=== PATIENT | male | born 1970 | race Caucasian/White ===

== ENCOUNTER → 2023-10-27 09:46 | Outpatient (REF) | payer BC, SELFPAY ==
[2023-10-27 11:44] LABS: ALT (SGPT) 37 U/L (0-50); AST (SGOT) 38 U/L (17-59); Albumin 4.5 g/dl (3.5-5.0); Alkaline Phosphatase 68 U/L (38-126); Direct Bilirubin 0.4 mg/dl (0.0-0.4); Total Bilirubin 0.7 mg/dl (0.2-1.3); Total Protein 7.5 g/dl (6.3-8.2)
[2023-10-27 12:19] LABS: Hepatitis B Surface Antigen Negative (Negative)
[2023-10-27 12:36] LABS: Hepatitis B Core Ab, Total Negative (Negative); Hepatitis B Surface Antibody Negative; Hepatitis C Antibody Negative (Negative)
[2023-10-27 18:10] LABS: Hepatitis A Antibody, Total Negative (Negative)
== END ==
LOC: REG 09:46
PROVIDERS: ATTENDING PHYSICIAN Internal Medicine Gastroenterology
DX: R74.8 Abnormal levels of other serum enzymes (principal)
CPT/HCPCS: 36415; 80076; 86704; 86706; 86708; 86803; 87340

== ENCOUNTER → 2023-11-04 07:37 | Outpatient (REF) | payer BC, SELFPAY | LOC: HWRAD 07:37 | PROVIDERS: ATTENDING PHYSICIAN Internal Medicine Gastroenterology; FAMILY PHYSICIAN Family Medicine | DX: R74.8 Abnormal levels of other serum enzymes (principal) | CPT/HCPCS: 76700 ==

== ENCOUNTER → 2023-11-06 06:20 | Day surgery (SDC) | payer BC, SELFPAY ==
[2023-11-06 08:12] LABS: Glucose - Point of Care 202 mg/dl (70-99)
== END ==
LOC: GI 06:20
PROVIDERS: ATTENDING PHYSICIAN Internal Medicine Gastroenterology
DX: Z12.11 Encounter for screening for malignant neoplasm of colon (principal); D12.4 Benign neoplasm of descending colon; K63.5 Polyp of colon; K64.8 Other hemorrhoids; K29.70 Gastritis, unspecified, without bleeding; K20.0 Eosinophilic esophagitis; R10.10 Upper abdominal pain, unspecified; R19.5 Other fecal abnormalities
CPT/HCPCS: 45385; 43239; 88305; 88312; 82962; 88342

== ENCOUNTER → 2024-05-27 14:52 | Outpatient (REF) | payer BC, SELFPAY | LOC: HWRCS 14:52 | PROVIDERS: ATTENDING PHYSICIAN Student in an Organized Health Care Education/Training Program; FAMILY PHYSICIAN Family Medicine | DX: R07.89 Other chest pain (principal) | CPT/HCPCS: 93306 ==

== ENCOUNTER 2024-06-24 06:21 | Day surgery (SDC) | payer BC, SELFPAY ==
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
[2024-06-20 09:06] VITALS: BMI 33.4
[2024-06-20 10:01] LABS: % Basophils 0.8 % (0-2); % Eosinophils 6.2 % (0-6); % Immature Granulocytes 0.2 % (0-0.5); % Lymphocytes 29.9 % (20.5-51.1); % Neutrophils 56.9 % (42.2-75.2); Absolute Basophils 0.1 10^3/uL (0-0.2); Absolute Eosinophils 0.6 10^3/uL (0-0.7); Absolute Lymphocytes 2.9 10^3/uL (1.2-3.4); Absolute Monocytes 0.6 10^3/uL (0.1-0.6); Absolute Neutrophils 5.4 10^3/uL (1.4-6.5); Hemoglobin 15.3 g/dL (13.0-18.0); Mean Corpuscular Hgb 31.2 pg (27.0-31.0); Mean Corpuscular Volume 91.8 fL (80.0-94.0); Mean Platelet Volume 10.3 fL (7.4-10.4); Nucleated Red Blood Cells % 0 % (-); Platelet Count 359 10^3/uL (130-400); White Blood Cell Count 9.5 10^3/uL (4.8-10.8)
[2024-06-20 10:57] LABS: ALT (SGPT) 34 U/L (0-50); AST (SGOT) 31 U/L (17-59); Albumin 4.6 g/dl (3.5-5.0); Alkaline Phosphatase 54 U/L (38-126); Blood Urea Nitrogen 23 mg/dl (9-20); Calcium 9.9 mg/dl (8.4-10.2); Carbon Dioxide 20 mmol/L (22-30); Chloride 105 mmol/L (98-107); Estimated Creatinine Clearance 110 ml/min; Glucose 180 mg/dl (70-99); Potassium 4.6 mmol/L (3.5-5.1); Sodium 138 mmol/L (135-145); Total Bilirubin 1.1 mg/dl (0.2-1.3); Total Protein 7.2 g/dl (6.3-8.2); eGFR > 60.00
[2024-06-24] VITALS (13 sets, daily range): BP systolic 107–135; BP diastolic 68–88; BMI 33.4
[2024-06-24] MEDS: NSS 500 IV ×2 (07:08→09:47)
[2024-06-24 07:10] LABS: Glucose - Point of Care 285 mg/dl (70-99)
[2024-06-24 10:11] LABS: Glucose - Point of Care 181 mg/dl (70-99)
[2024-06-24] MEDS: TYLENOL 650 MG PO (10:17)
--- NOTE | 2024-06-24 10:51 | ITS.CL.PN ---
Rn Lpn Lvn - Procedure Note
Procedure
Procedure Note:
CARDIAC CATHETERIZATION REPORT
Date of Procedure: 06/24/2024
Referring: Dr. Rad Cabrera MD, PhD
Indication: chest pain, cardiomyopathy
PROCEDURE(S)
1. left heart catheterization
2. coronary angiography
ACCESS: 6F right radial artery (closure: radial band)
CATHETERS
1. 6F JR4
2. 6F JL3.5
HEMODYNAMIC DATA
LV 108/19 (EDP 26) mmHg
AO 117/81 (mean 97) mmHg
CORONARY ANGIOGRAPHY
Dominance: right
LM: large and normal
LAD: large patulous vessel giving rise to a large septal cascade, moderate caliber D1, and small D2. There is a total occlusion just after D1 with the distal LAD filled by left to left and right to left collaterals. The TRACK LAYER HEAD is long (~30 cm),
straight, noncalcified, with a well-defined proximal beak, and no branches at the distal reconstitution.
LCx: large vessel that gives rise to a small OM1 and large OM 2. There is diffuse mild nonobstructive disease.
RCA: large vessel giving rise to a large RPDA, moderate caliber RPL1, large RPL2, and small RPL3. There is a 95% stenosis in the mid RCA, moderate disease in the proximal aspect of the RPDA, severe disease in the RPAV prior to the large RPL2 branch,
and diffuse mild disease in the RPL2 branch.
RADIATION: dose 519 mGy; DAP 30.9 Gy*cm2; fluoroscopy time 3.8 min
CONCLUSIONS
1. Two-vessel coronary artery disease in a right dominant system as described.
2. Elevated LV filling pressure and no aortic stenosis on hemodynamic pullback
RECOMMENDATIONS
1. expectant management after cardiac catheterization via right radial approach
2. referral for consideration of coronary artery bypass grafting given patient's young age, diabetes, and cardiomyopathy with reduced ejection fraction. Percutaneous revascularization of the RCA would be complicated but technically feasible due to
significant distal branch disease requiring multiple stents. Percutaneous revascularization of the LAD would be complicated but technically feasible due to presence of a long mid vessel TRACK LAYER HEAD.
3. aggressive secondary prevention of coronary artery disease with addition of PCSK9 inhibitor for goal LDL less than 55. Aggressive management of risk factors including diabetes, hypertension, obesity.
Copy to: Dr. Noel Armenta MD (PCP)
Signed: Rad Cabrera MD, PhD
== END 2024-06-24 12:05 | disposition home or self-care (01) ==
LOC: CATH 06:21
PROVIDERS: ATTENDING PHYSICIAN Student in an Organized Health Care Education/Training Program; CONSULT PHYSICIAN Thoracic Surgery (Cardiothoracic Vascular Surgery); FAMILY PHYSICIAN Family Medicine
DX: I25.10 Atherosclerotic heart disease of native coronary artery without angina pectoris (principal); R42 Dizziness and giddiness; R07.89 Other chest pain; I10 Essential (primary) hypertension; I45.10 Unspecified right bundle-branch block; R93.1 Abnormal findings on diagnostic imaging of heart and coronary circulation; J45.909 Unspecified asthma, uncomplicated; I34.0 Nonrheumatic mitral (valve) insufficiency; E11.40 Type 2 diabetes mellitus with diabetic neuropathy, unspecified; I42.9 Cardiomyopathy, unspecified; E78.01 Familial hypercholesterolemia; K21.9 Gastro-esophageal reflux disease without esophagitis; Z86.0100 Personal history of colon polyps, unspecified; Z87.442 Personal history of urinary calculi; K76.0 Fatty (change of) liver, not elsewhere classified; G43.909 Migraine, unspecified, not intractable, without status migrainosus; Z87.828 Personal history of other (healed) physical injury and trauma; M19.90 Unspecified osteoarthritis, unspecified site; F41.9 Anxiety disorder, unspecified; E66.9 Obesity, unspecified; Z68.33 Body mass index [BMI] 33.0-33.9, adult; Z79.82 Long term (current) use of aspirin; Z79.84 Long term (current) use of oral hypoglycemic drugs; Z79.85 Long-term (current) use of injectable non-insulin antidiabetic drugs; Z79.899 Other long term (current) drug therapy
CPT/HCPCS: 36415; 80053; 82962; 85025; 93005; 93458; C1894

== ENCOUNTER → 2024-07-13 06:56 | Outpatient (REF) | payer BC, SELFPAY | LOC: RAD 06:56 | PROVIDERS: ATTENDING PHYSICIAN Thoracic Surgery (Cardiothoracic Vascular Surgery); FAMILY PHYSICIAN Family Medicine | DX: I25.10 Atherosclerotic heart disease of native coronary artery without angina pectoris (principal); Z01.818 Encounter for other preprocedural examination | CPT/HCPCS: 71250; 93923; 93931 ==

== ENCOUNTER → 2024-07-19 13:17 | Outpatient (REF) | payer BC, SELFPAY | LOC: RAD 13:17 | PROVIDERS: ATTENDING PHYSICIAN Student in an Organized Health Care Education/Training Program | DX: Z98.890 Other specified postprocedural states (principal) | CPT/HCPCS: 93930 ==

== ENCOUNTER 2024-07-29 05:15 | Inpatient (IN) | payer BC, SELFPAY ==
[2024-07-14 08:30] VITALS: BMI 34.0
[2024-07-14 09:31] LABS: % Basophils 0.5 % (0-2); % Eosinophils 8.6 % (0-6); % Immature Granulocytes 0.3 % (0-0.5); % Lymphocytes 25.8 % (20.5-51.1); % Monocytes 5.9 % (1.7-9.3); % Neutrophils 58.9 % (42.2-75.2); Absolute Basophils 0.1 10^3/uL (0-0.2); Absolute Eosinophils 0.9 10^3/uL (0-0.7); Absolute Lymphocytes 2.7 10^3/uL (1.2-3.4); Absolute Monocytes 0.6 10^3/uL (0.1-0.6); Absolute Neutrophils 6.2 10^3/uL (1.4-6.5); Mean Corp Hgb Conc. 33.3 g/dL (33.0-37.0); Mean Corpuscular Hgb 30.8 pg (27.0-31.0); Mean Corpuscular Volume 92.3 fL (80.0-94.0); Mean Platelet Volume 10.4 fL (7.4-10.4); Nucleated Red Blood Cells % 0 % (-); Platelet Count 371 10^3/uL (130-400); Red Blood Cell Count 4.55 10^6/uL (4.70-6.10); Red Cell Dist. Width 13.1 % (11.5-14.5); White Blood Cell Count 10.5 10^3/uL (4.8-10.8)
[2024-07-14 09:47] LABS: APTT 30.2 Sec (23.4-35.0); INR 0.99; PT 13.4 Sec (11.4-14.6)
[2024-07-14 10:08] LABS: ALT (SGPT) 32 U/L (0-50); AST (SGOT) 25 U/L (17-59); Albumin 4.4 g/dl (3.5-5.0); Alkaline Phosphatase 59 U/L (38-126); Blood Urea Nitrogen 22 mg/dl (9-20); Calcium 9.5 mg/dl (8.4-10.2); Carbon Dioxide 20 mmol/L (22-30); Chloride 106 mmol/L (98-107); Direct Bilirubin 0.2 mg/dl (0.0-0.4); Estimated Creatinine Clearance 91 ml/min; Glucose 158 mg/dl (70-99); Potassium 4.6 mmol/L (3.5-5.1); Sodium 142 mmol/L (135-145); Total Bilirubin 0.8 mg/dl (0.2-1.3); eGFR > 60.00
--- NOTE | 2024-07-14 10:20 | CM ---
Chart reviewed. Met with the patient at [facility]. 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
DME. Reviewed preoperative and postoperative instructions and restrictions, along with showering guidelines. Gave patient 2 soaps. Patient is agreeable to a home visit by CT Transitional RN. Plan is for the patient to return home with CT
Transitional RN.
[2024-07-14 10:21] LABS: Urine Albumin Trace (Neg - Trace); Urine Bilirubin Negative (Negative); Urine Character Clear (Clear); Urine Color Yellow; Urine Glucose 3+ (Negative); Urine Ketone Negative (Negative); Urine Leukocyte Negative (Negative); Urine Nitrite Positive (Negative); Urine Occult Blood Negative (Negative); Urine Specific Gravity 1.015 (<1.030); Urine Urobilinogen Negative (Neg - 1+)
[2024-07-14 11:15] LABS: Urine Amorphous Seen; Urine Squamous Cell 0-2 /LPF (Few)
[2024-07-14 11:17] LABS: Urine Bacteria Moderate (Negative); Urine Red Blood Cell 0-2 /HPF (0-2); Urine White Cell 0-2 /HPF (0-5)
[2024-07-14 11:30] LABS: Glycohemoglobin (HgbA1c) 8.4 % (4.0-5.6)
[2024-07-29] VITALS (9 sets, daily range): BP systolic 92–122; BP diastolic 65–83; BMI 33.4
[2024-07-29] MEDS: LOPRESSOR 25 MG PO (05:46)
[2024-07-29] MEDS: PROTONIX 40 MG PO (05:46)
[2024-07-29] MEDS: MAGNESIUM OXIDE 500 MG PO (05:46)
[2024-07-29] MEDS: BACTROBAN 2% OINTMENT 1 APPLIC NASAL ×2 (05:47→20:40)
--- NOTE | 2024-07-29 06:24 | W.CVOR.SURPR ---
CVOR Surgeon Immed Pre Op
-
I have examined this patient prior to performance of the scheduled procedure.
The patient's condition is unchanged from the time of the dictated/written History and
Physical and the patient is able to undergo the scheduled procedure.
--- NOTE | 2024-07-29 08:53 | CM ---
Patient in OR today for CT Surgery.
Pt. resides in a private split level home w/ his sister in law and nephew.
Functionally, patient is indep. w/ ADLs, mobility without the use of any assisted device.
Antic. DC plan is for home with CT Transitional Care RN.
CM to follow.
[2024-07-29 08:55] LABS: ACT+ - POC 115 Seconds (82-134)
[2024-07-29 08:58] LABS: Urine Albumin 1+ (Neg - Trace); Urine Bilirubin Negative (Negative); Urine Character Clear (Clear); Urine Color Yellow; Urine Glucose 3+ (Negative); Urine Ketone Negative (Negative); Urine Leukocyte Negative (Negative); Urine Nitrite Negative (Negative); Urine Occult Blood 2+ (Negative); Urine Specific Gravity 1.025 (<1.030); Urine Urobilinogen Negative (Neg - 1+)
[2024-07-29 09:16] LABS: Urine Bacteria Few (Negative)
[2024-07-29 11:20] LABS: ACT+ - POC 592 Seconds (82-134)
[2024-07-29 11:33] LABS: B.E. - POC -7.3 mmol/L; Glucose - POC 169 mg/dl (70-99); HCO3 - POC 19 mmol/L (21-28); Hematocrit - POC 37 % PCV (42-52); Hemodilution- POC No; Hemoglobin Calculated - POC 12.7; Ionized Calcium - POC 1.26 mmol/L (1.15-1.33); O2 Saturation %Calculated-POC 99.3 % (94-98); PCO2 - POC 41 mmHg (35-48); PO2 - POC 171 mmHg (83-108); POC Comment PRE; Potassium - POC 3.9 mmol/L (3.5-5.1); Sodium - POC 141 mmol/L (136-145); Specimen Type - POC Arterial; pH - POC 7.28 (7.35-7.45)
[2024-07-29 11:41] LABS: ACT+ - POC 511 Seconds (82-134)
[2024-07-29 11:43] LABS: B.E. - POC -0.9 mmol/L; Glucose - POC 208 mg/dl (70-99); HCO3 - POC 24 mmol/L (21-28); Hematocrit - POC 29 % PCV (42-52); Hemodilution- POC Yes; Hemoglobin Calculated - POC 9.9; Ionized Calcium - POC 1.12 mmol/L (1.15-1.33); PCO2 - POC 42 mmHg (35-48); PO2 - POC 432 mmHg (83-108); Potassium - POC 4.2 mmol/L (3.5-5.1); Sodium - POC 139 mmol/L (136-145); Specimen Type - POC Arterial; pH - POC 7.37 (7.35-7.45)
[2024-07-29 12:06] LABS: ACT+ - POC 576 Seconds (82-134)
[2024-07-29 12:26] LABS: B.E. - POC -3.1 mmol/L; Glucose - POC 197 mg/dl (70-99); HCO3 - POC 22 mmol/L (21-28); Hematocrit - POC 33 % PCV (42-52); Hemodilution- POC Yes; Hemoglobin Calculated - POC 11.4; Ionized Calcium - POC 1.14 mmol/L (1.15-1.33); O2 Saturation %Calculated-POC 99.9 % (94-98); PCO2 - POC 38 mmHg (35-48); PO2 - POC 363 mmHg (83-108); POC Comment CPB; Potassium - POC 4.1 mmol/L (3.5-5.1); Sodium - POC 140 mmol/L (136-145); Specimen Type - POC Arterial; pH - POC 7.37 (7.35-7.45)
[2024-07-29 12:35] LABS: ACT+ - POC 522 Seconds (82-134)
[2024-07-29 12:47] LABS: ACT+ - POC 473 Seconds (82-134)
[2024-07-29 12:51] LABS: B.E. - POC -3.2 mmol/L; Glucose - POC 175 mg/dl (70-99); HCO3 - POC 22 mmol/L (21-28); Hematocrit - POC 32 % PCV (42-52); Hemodilution- POC Yes; Hemoglobin Calculated - POC 10.9; PCO2 - POC 40 mmHg (35-48); PO2 - POC 401 mmHg (83-108); POC Comment CPB; Potassium - POC 4.3 mmol/L (3.5-5.1); Sodium - POC 140 mmol/L (136-145); Specimen Type - POC Arterial; pH - POC 7.35 (7.35-7.45)
[2024-07-29 12:59] LABS: ACT+ - POC 493 Seconds (82-134)
[2024-07-29 13:12] LABS: ACT+ - POC 528 Seconds (82-134)
[2024-07-29 13:22] LABS: B.E. - POC -1.7 mmol/L; Glucose - POC 167 mg/dl (70-99); HCO3 - POC 24 mmol/L (21-28); Hematocrit - POC 32 % PCV (42-52); Hemodilution- POC Yes; Hemoglobin Calculated - POC 10.9; Ionized Calcium - POC 1.19 mmol/L (1.15-1.33); O2 Saturation %Calculated-POC 99.9 % (94-98); PCO2 - POC 41 mmHg (35-48); PO2 - POC 357 mmHg (83-108); POC Comment WARM; Potassium - POC 4.5 mmol/L (3.5-5.1); Sodium - POC 143 mmol/L (136-145); Specimen Type - POC Arterial; pH - POC 7.37 (7.35-7.45)
[2024-07-29 13:29] LABS: ACT+ - POC 473 Seconds (82-134)
[2024-07-29 13:44] LABS: B.E. - POC -2.3 mmol/L; Glucose - POC 157 mg/dl (70-99); HCO3 - POC 22 mmol/L (21-28); Hematocrit - POC 33 % PCV (42-52); Hemodilution- POC Yes; Hemoglobin Calculated - POC 11.2; Ionized Calcium - POC 1.37 mmol/L (1.15-1.33); PCO2 - POC 36 mmHg (35-48); PO2 - POC 431 mmHg (83-108); POC Comment WARM; Potassium - POC 4.1 mmol/L (3.5-5.1); Sodium - POC 143 mmol/L (136-145); Specimen Type - POC Arterial
[2024-07-29 13:46] LABS: ACT+ - POC 118 Seconds (82-134)
[2024-07-29 14:03] LABS: B.E. - POC -4.5 mmol/L; Glucose - POC 143 mg/dl (70-99); HCO3 - POC 21 mmol/L (21-28); Hematocrit - POC 31 % PCV (42-52); Hemodilution- POC Yes; Hemoglobin Calculated - POC 10.5; PCO2 - POC 37 mmHg (35-48); PO2 - POC 135 mmHg (83-108); Potassium - POC 3.8 mmol/L (3.5-5.1); Sodium - POC 143 mmol/L (136-145); Specimen Type - POC Arterial; pH - POC 7.36 (7.35-7.45)
[2024-07-29] MEDS: TYLENOL PO ×3 (14:14→21:51)
[2024-07-29] MEDS: NOVOLOG FLEXPEN SC ×2 (14:14→15:48)
--- NOTE | 2024-07-29 14:18 | W.IMMPOSTOP ---
Addendum entered and electronically signed by Tanner Zhang MD 07/29/24 16:02:
[id number]
Original Note:
Surgical Immed Post Op Note
-
CARDIAC SURGERY OPERATIVE NOTE:
Preoperative Dx:
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
Extensive FHx of premature CAD
Poorly-controlled DM w/ HgbA1c 10.2 to 8.4
Evidence of prior inferior and lateral MIs
LVEF 35%
Mild MR
Postoperative Dx:
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
Same
Procedures:
1) Median sternotomy
2) Takedown of DIRK (narrow pedicle)
3) Endoscopic harvest/prep of RLE GSV
4) CABG x 2 (DIRK to LAD, GSV to RPDA)
Surgeon:
Tanner Zhang M.D.
Wing Scorer:
Scott Barajas.A.-CChemo; first line production supervisor throughout
Rangel NegroA.-CChemo; endoscopic harvest/prep of RLE GSV, odvela-otrx-neaw sternotomy closure
Anesthesia:
Zbigniew Melara M.D. and Meño Martinez M.D.
Fazal MarceloN.AChemo
Perfusion:
Di Morfin C.C.P.; XC: 75min, CPB: 111min
Findings:
DIRK was a very healthy appearing conduit w/ very brisk blood flow; ELD 2.75mm
GSV was a healthy appearing conduit w/ slightly small size (ELD 2.5mm) and slightly thin riley
LAD was visible on the epicardial surface with extensive densely spaced calcifications throughout. A spot amenable to bypass was identified in the distal midpoint approximately 5cm distal to the known ELECTRON TUBE ASSEMBLER. ELD at this level was approximately
2.25mm. The riley were relatively normal at this location w/ closely associated calcifications both proximal and distal. There was very brisk blood flow in all directions upon release of proximal bulldog clamp on DIRK.
The RPDA was visible on the epicardial surface, partially obscured by minor epicardial adipose tissue. A spot in its proximal 1/3rd was amenable to bypass. Moderately dense scattered calcifications throughout. Minor posterior calcifications
present at anastomotic site. ELD 2.25mm
The RPLB branch was cleared along its surface but was deemed too small for bypass (<1mm)
The distal RCA at and immediately past the crux was cleared along its surface, but was circumferentially densely calcified and not amenable to arteriotomy/bypass
Proximal to RPDA redone/moved to allow for ideal graft length
The patient's preoperative echocardiogram had mild MR (05/27/24)
The intraoperative preoperative SAFIA demonstrated bworimdp-nc-nozpvj MR (3+) secondary to IIIB dysfunction w/ tethering of both anterior and posterior leaflets w/ subtle prolapse of anterior leaflet. There was pulmonary vein blunting w/o flow
reversal. The LVEF was globally decreased at 35% w/ most severely affected inferior wall. The AV was normal. The RV was normal. MR discussed in multidisciplinary fashion w/ anesthesia & cardiology. MV intervention was not undertaken.
Postoperative ECHO w/ slightly improved heart function but generally grossly unchanged.
Implants:
CT x 4 (B/L pleural, inferior mediastinal, superior mediastinal)
Sternal wires x 7
Sternal 'X' plate w/ 4 - 14mm and 4 - 16mm screws
Sternal 'Square' plate w/ 4 - 12mm screws
Transfusions:
None
Complications:
None
Condition:
99 sinus (0.3/-0.3), 93/62, 46/26, CVP 11, CO/CI: 4.9/2.1, 99%
GTTS: levophed 1, dobutamine 4, insulin 2, precedex 0.5
Stable/guarded to CVICU
[2024-07-29] MEDS: ZETIA PO (14:32)
[2024-07-29 15:04] LABS: Glucose - Point of Care 117 mg/dl (70-99)
--- NOTE | 2024-07-29 15:09 | W.PN.CD ---
Addendum entered and electronically signed by Andreas Sims MD 07/29/24 17:35:
I saw and examined the patient.
The AUTO RENTAL CLERK's note was reviewed and I agree with the note.
Comment: 54 y/o male with RBBB, DM2, hypertension, and dyslipidemia recently saw Dr. Cabrera for chest discomfort. Echo showed ICM with 35-40%. Cath showed multivessel CAD. He is now s/p CABG x 2.
- discussed case with CTS Dr Zhang, ECG changes, however, doing well post op continue monitoring
Original Note:
Today's Communication / Plan
-
-close post-op monitoring and care with weaning of drips and vent as tolerated per CT surgery/CVICU protocol
Impression / Plan
-
54 y/o male with RBBB, DM2, hypertension, and dyslipidemia recently saw Dr. Cabrera for chest discomfort. Echo showed ICM with 35-40%. Cath showed multivessel CAD. He is now s/p CABG x 2.
CAD s/p CABG x 2 (DIRK to LAD, GSV to RPDA), Dr. Zhang 07/29/24:
-intubated and sedated post-operatively
-he remains on dobutamine
-post-op CXR pending
-post-op EKG and tele SR/ST with RBBB
-ASA, statin, BB when able
Mitral regurgitation:
-mild on pre-op echo
-moderate to severe per op report, no intervention
-will need to be monitored over time
ICM:
-EF 35%
-on Farxiga, losartan, spironolactone, and metoprolol as OP- resume GDMT as tolerated when appropriate post-op
-monitor volume
Dyslipidemia:
-statin when able
HTN:
-monitor post-op
RBBB:
-chronic
Obesity:
-will benefit from weight loss long-term
Physical Exam
Vital Signs/Labs
Vital Signs
Temp Pulse Resp BP Pulse Ox
97.9 F 98 20 113/81 95
07/29/24 14:59 07/29/24 14:54 07/29/24 14:54 07/29/24 05:27 07/29/24 15:05
07/28/24 07/29/24 07/30/24
06:59 06:59 06:59
Actual Weight 107.1 kg
PT 13.4 Sec (11.4-14.6) 07/14/24 08:59
INR 0.99 07/14/24 08:59
APTT 30.2 Sec (23.4-35.0) 07/14/24 08:59
Physical Exam
Constitutional: No acute distress
Cardiovascular: Rhythm & rate is regular (SR/ST)
Respiratory: Lungs clear to auscul. and Other (intubated and ventilated)
Neuro/Psych: Other (sedated)
Other: Skin (midsternal incision CDI)
Data Reviewed
-
Date of Service: July 29, 2024
EKG: Tracing Personally Visualized and interpreted (SR bifasicular block 98 BPM) and Other (SR/ST tele)
Echo: Other (echo 05/27/24: ildly dilated LV with moderately reduced systolic function. LVEF is 35-40% by visual estimation. Possible LAD and RCA territory hypokinesis. Normal right ventricular size and function. Mild mitral regurgitation.)
Labs: Labs Reviewed by me
--- NOTE | 2024-07-29 15:09 | CON.INTV ---
Consultation
Consultation Request
Date/Time Consultation Requested: 07/29/2024
Date/Time Consultation Performed: 07/29/2024
Requesting Provider: Dr. Zhang
Performing Provider: Dr. Tamir Hays
Reason for Consultation: Coronary artery bypass
Medical History
-
History of Present Illness:
54-year-old man with history of coronary artery disease with extensive family history of coronary artery disease and early mortality. Patient does have decreased LVEF 35 to 40%. Evaluated by CT surgery in the outpatient setting and he was deemed
candidate for revascularization. Coronary artery bypass underwent on 07/29/2024 without complications.
Currently in the critical care unit, intubated, on mechanical ventilation. Sedated.
Records reviewed.
Currently patient's hemodynamics are acceptable on low-dose dobutamine.
Chest tube in place without significant air leak
He appears comfortable mechanical ventilation.
Past Medical History
Past Medical History: Other (See assessment and plan)
Social History
Tobacco: Non-smoker
Alcohol: None
Drug: None
Living: With Family
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
Family History
Family History: Early CAD (With early mortality) and Other (Father with melanoma, mother with ovarian cancer. 1 younger brother from a massive heart attack.)
Allergies / Home Medications
Allergies
Allergy/AdvReac Type Severity Reaction Status Date / Time
apple Allergy Anaphylaxis Verified 07/12/24 10:17
azithromycin [From Zithromax] Allergy Hives Verified 07/12/24 10:17
carrot Allergy Anaphylaxis Verified 07/12/24 10:17
COVID-19 (SARS-CoV-2) Allergy Rash Verified 07/29/24 05:46
vaccine, ila
cucumber Allergy Anaphylaxis Verified 07/12/24 10:17
erythromycin base Allergy Anaphylaxis Verified 07/12/24 10:17
Influenza Virus Vaccines Allergy Rash Verified 07/29/24 05:46
peach Allergy Anaphylaxis Verified 07/12/24 10:17
pear Allergy Anaphylaxis Verified 07/12/24 10:17
peas Allergy Anaphylaxis Verified 07/12/24 10:17
phenylalanine Allergy Anaphylaxis Verified 07/12/24 10:17
olives Allergy Patient Uncoded 07/12/24 10:17
denies
Snuggle fabric softener Allergy Hives Uncoded 07/12/24 10:17
Home Medications
�Medication �Instructions �Recorded �Confirmed �Last Taken �Type
metformin 500 mg tablet,extended 1,000 mg (2 x 500 mg) PO BID ##120 11/01/15 07/29/24 07/28/24 23:00 Rx
release 24 hr
aspirin 81 mg chewable tablet 81 mg PO DAILY #14 tabs 05/26/21 07/29/24 07/28/24 09:00 Rx
dapagliflozin propanediol 10 mg 10 mg PO DAILY 06/13/24 07/29/24 07/25/24 09:15 History
tablet (Farxiga)
dulaglutide 0.75 mg/0.5 mL 0.75 mg SC MO 06/13/24 07/29/24 07/21/24 10:00 History
subcutaneous pen injector
(Trulicity)
ezetimibe 10 mg tablet 10 mg PO DAILY 06/13/24 07/29/24 07/28/24 09:00 History
gabapentin 400 mg capsule 400 mg PO TID 06/13/24 07/29/24 07/28/24 22:00 History
gabapentin 600 mg tablet 600 mg PO HS 06/13/24 07/29/24 07/28/24 22:00 History
glimepiride 2 mg tablet 4 mg PO DAILY 06/13/24 07/29/24 07/28/24 09:00 History
losartan 50 mg tablet 50 mg PO DAILY 06/13/24 07/29/24 07/26/24 09:20 History
zybjyuyj-hqz-mqmti acid 200 1 tab PO DAILY 06/13/24 07/29/24 07/21/24 23:00 History
mcg-vit K1 60 mcg-lycopene 600 mcg
tablet (Men's Multivitamin)
pantoprazole 20 mg tablet,delayed 20 mg PO HS 06/13/24 07/29/24 07/28/24 22:00 History
release
acetaminophen 325 mg capsule 650 mg PO Q4H PRN pain 06/14/24 07/29/24 07/28/24 16:00 History
bismuth subsalicylate 262 mg 2 tab PO DAILYPRN PRN indigestion 06/14/24 07/29/24 07/28/24 16:00 History
chewable tablet (Pepto-Bismol)
ibuprofen 200 mg tablet (Advil) 400 mg PO Q6HPRN PRN pain 06/14/24 07/29/24 07/21/24 History
lorazepam 1 mg tablet 0.5 mg PO DAILYPRN PRN anxiety 06/20/24 07/29/24 07/28/24 22:00 History
metoprolol succinate 100 mg 100 mg PO DAILY #90 tabs 06/24/24 07/29/24 07/28/24 09:00 Rx
tablet,extended release 24 hr
nitroglycerin 0.4 mg sublingual 0.4 mg sublingual [id number] PRN 06/24/24 07/29/24 07/06/24 Rx
tablet chest pain #25 tabs
spironolactone 25 mg tablet 25 mg PO DAILY #90 tabs 06/24/24 07/29/24 07/26/24 09:20 Rx
epinephrine 0.3 mg/0.3 mL 0.3 mg IM ONCE anaphylaxis 07/12/24 07/29/24 07/23/21 History
injection, auto-injector (Auvi-Q)
evolocumab 140 mg/mL subcutaneous 140 mg SC Q2W 07/12/24 07/29/24 07/21/24 09:00 History
pen injector (Repatha SureClick)
diphenhydramine HCl 25 mg capsule 25 mg PO HS PRN Allergies 07/29/24 07/29/24 07/28/24 22:00 History
(Benadryl)
Review of Systems
-
Unable to Obtain full review of systems at this time due to: Acuity
Vitals / Labs / Diagnostic Testing
Vital Signs
Temp Pulse Resp BP Pulse Ox
97.9 F 98 20 113/81 95
07/29/24 14:59 07/29/24 14:54 07/29/24 14:54 07/29/24 05:27 07/29/24 15:05
Diagnostic Testing:
Physical Exam
-
HEENT: Normocephalic and Other (ET tube in place without secretion)
Cardiovascular: S1/S2
Respiratory: Non-Labored Respirations
GI: Non Distended
Neurology: Other (Sedated, mechanical ventilator)
Skin: Warm
General: Comfortable
Assessment
-
Status post coronary artery bypass 07/29/2024 Dr. Zhang
Postoperative mechanical ventilation
Postoperative anemia-blood loss
Conditions present prior admission:
Hypertension
Type 2 diabetes
Migraines
Hypercholesterolemia
Statin intolerant
History of neuropathy
GERD
Right bundle branch block
Coronary artery disease
Moderate/severe mitral regurgitation
Nephrolithiasis
Hepatic asteatosis
Obesity
History of vertigo
History of herpes zoster 03/2024
Anxiety/panic attacks
Assessment and plan:
He is doing well postop-currently on mechanical ventilation and appears comfortable.
ABG reviewed: Mild hypercapnia. Should clear as sedation wears off.
Continue SIMV mode with no change
Spontaneous breathing trial per protocol once sedation wears off.
Anemia noted-no evidence of acute bleeding
Follow H&H serially
Hemodynamics -acceptable on low-dose dobutamine.Wean off as able.
Arterial line in place/PA catheter in place-will follow hemodynamic
Follow renal function on a daily basis
Metz in place
Chest tube with no excessive drainage-no air leak.
Chest x-ray reviewed: With no pneumothorax or fluid collections. Left lower lobe atelectasis.
Remain nothing by mouth
Head of the bed elevation
Glycemic control per protocol
DVT prophylaxis when safe from the surgical perspective.
Critical care statement: A total of 32 minutes of critical care time was provided for this patient today. This includes management of unstable vital signs, evaluation of the patient at bedside, reviewing the patient's pertinent medical records
including ventilator settings, arterial blood gases, radiographs, microbiology, laboratory evaluations and discussion with primary team, critical care nursing, and respiratory therapy.
[2024-07-29 15:18] LABS: Hematocrit 31.9 % (39.0-52.0); Hemoglobin 10.8 g/dL (13.0-18.0); Platelet Count 191 10^3/uL (130-400)
[2024-07-29 15:21] LABS: B.E. -5.9 mmol/L; HCO3 20.2 mmol/L (21-28); Ionized Calcium 1.31 mMOL/L (1.15-1.33); O2 Saturation % 96.9 % (94-98); PCO2 41 mmHg (35-48); PO2 77 mmHg (83-108); Potassium 4.7 mMOL/L (3.5-5.1); Sodium 138 mMOL/L (136-145)
[2024-07-29] MEDS: ANCEF 10 IV ×2 (15:23→15:24)
[2024-07-29 15:24] LABS: APTT 26.6 Sec (23.4-35.0); INR 1.42; PT 17.6 Sec (11.4-14.6)
[2024-07-29] MEDS: PACERONE PO ×2 (15:24→23:00)
[2024-07-29] MEDS: NEURONTIN PO ×2 (15:24→21:39)
[2024-07-29] MEDS: NSS 500 IV (15:24)
[2024-07-29 15:31] LABS: Blood Urea Nitrogen 27 mg/dl (9-20); Estimated Creatinine Clearance 97 ml/min; Glucose 121 mg/dl (70-99); Magnesium 3.2 mg/dl (1.6-2.3)
[2024-07-29] MEDS: SODIUM BICARBONATE 50 MEQ IV ×2 (15:33→21:14)
--- NOTE | 2024-07-29 15:53 | PTCARENOTE ---
Patient received from CVOR s/p CABG x 2. NSR via cm, SaO2 @ 95% on ventilator, titrating FiO2 as able. RIJ Cordis/[place]alle catheter, L radial arterial lines present - leveled, flushed, and calibrated w/good waveforms returned. Mediastinal chest
tubes x 2 to one pleurevac, L and R pleural chest tubes to separate pleurevac - both placed to -20cm suction w/no air leaks noted. Metz catheter to gravity. All procedural sites stable. Initial CI 2.40. Labs drawn, EKG performed, pcxr obtained. See
work list for full assessment, interventions performed, and intravenous infusion rates and titrations.
[2024-07-29 15:59] LABS: Glucose - Point of Care 137 mg/dl (70-99)
[2024-07-29] MEDS: DILAUDID 0.5 MG IV (16:39)
[2024-07-29 17:01] LABS: Glucose - Point of Care 131 mg/dl (70-99)
[2024-07-29 17:11] LABS: B.E. -3.8 mmol/L; HCO3 21.5 mmol/L (21-28); Ionized Calcium 1.27 mMOL/L (1.15-1.33); O2 Saturation % 97.7 % (94-98); PCO2 39 mmHg (35-48); PO2 78 mmHg (83-108); Potassium 4.5 mMOL/L (3.5-5.1); pH 7.35 (7.35-7.45)
[2024-07-29] MEDS: TORADOL 15 MG IV (17:37)
--- NOTE | 2024-07-29 17:45 | PTCARENOTE ---
Patient exhibited spontaneous breaths over set ventilator rate, CPAP wean initiated. No apnea noted, good TV. ABG obtained, results conveyed to DELORES Michelle. Patient extubated to 6lnc w/out incident, SaO2 @ 93%.
[2024-07-29 18:04] LABS: Glucose - Point of Care 117 mg/dl (70-99)
[2024-07-29] MEDS: LR 250 ML IV ×2 (18:26→23:35)
[2024-07-29 19:02] LABS: Glucose - Point of Care 142 mg/dl (70-99)
[2024-07-29 19:13] LABS: Hematocrit 32.5 % (39.0-52.0); Platelet Count 221 10^3/uL (130-400)
[2024-07-29] MEDS: ZOFRAN 4 MG IV (19:22)
[2024-07-29] MEDS: DILAUDID 0.25 MG IV (19:30)
[2024-07-29 20:18] LABS: Glucose - Point of Care 154 mg/dl (70-99)
[2024-07-29 20:25] LABS: B.E. -4.1 mmol/L; HCO3 20.9 mmol/L (21-28); Ionized Calcium 1.21 mMOL/L (1.15-1.33); O2 Saturation % 97.3 % (94-98); PCO2 37 mmHg (35-48); PO2 77 mmHg (83-108); Potassium 4.4 mMOL/L (3.5-5.1); pH 7.36 (7.35-7.45)
[2024-07-29] MEDS: SENOKOT-S PO (20:28)
--- NOTE | 2024-07-29 20:30 | PTCARENOTE ---
Patient received resting in bed watching television. Patient A+A+Ox3. No neurological deficits noted. No c/o headache, dizziness or lightheadedness. Patient with c/o sternal pain - IV Dilaudid 0.25 mg administered. Patient with c/o nausea.
Patient vomited yellowish emesis into [place]. Zofran 4mg IV administered. O2 6L via NC. SaO2 94%. ABG collected and sent per PA order. 4 chest tubes - Mediastinal x2 and Right and Left Pleural - Intact and patent - 10 ml red drainage - No air
leak. Chest tube dressing intact. Sinus Rhythm with occasional PVC. Heart rate 90's. Patient continues on Dobutamine gtt at 3 mcq/kg/min (9.6 ml/hr). Levophed gtt at 2 mcq/min (7.5 ml/hr). Patient's abdomen soft, round, obese. Hypoactive
bowel sounds. Metz catheter - Temperature sensing - Light julius, yellow urine - Outputs as documented. Right I.J. Cordis with [place] Halle catheter. Left radial arterial line. A-Line, PAP and CVP to pressure bag/saline flush - Flush without
difficulty - Zeroed and calibrated - Waveforms within normal limits. C.O. 5.32 C.I. 2.37 SVR 842 PAP 30/20 (25) CVP 10. Sternal dressing intact. Right groin puncture site intact. Right lower extremity incision intact - [place] Wrap intact.
Positive, palpable pulses. Assessment as documented.
[2024-07-29] MEDS: LOW STRENGTH ASPIRIN 81 MG PO (20:39)
[2024-07-29] MEDS: ANCEF 5 IV (20:39)
[2024-07-29] MEDS: NEURONTIN 600 MG PO (21:35)
[2024-07-29] MEDS: OFIRMEV 100 IV (21:56)
[2024-07-29 22:17] LABS: Glucose - Point of Care 153 mg/dl (70-99)
[2024-07-29] MEDS: REGLAN 10 MG IV (22:19)
--- NOTE | 2024-07-29 23:00 | PTCARENOTE ---
PA for CT Surgery, Erica Munoz PA-C, reviewed ABG results. Patient placed on Midflow Oxygen 8L by respiratory therapist. SpO2 94%. Sodium Bicarbonate 50 mEq/50 ml IV administered. Patient having difficulty taking PO medications. IV Ofirmev
1,000mg/100ml administered. C.O. 5.42 C.I. 2.42 SVR 944 PAP 32/18 (23) CVP 10. Patient with nausea and retching. Reglan 10 mg IV ordered by LIZETTE and administered. Patient now sleeping. Assessment/Interventions as documented.
[2024-07-30] VITALS (35 sets, daily range): BP systolic 94–122; BP diastolic 57–98; BMI 33.4
[2024-07-30 00:24] LABS: Glucose - Point of Care 163 mg/dl (70-99)
--- NOTE | 2024-07-30 01:00 | PTCARENOTE ---
Patient sleeping. LR Bolus IV x1. C.O. 6.52 C.I. 2.91 SVR 760 PAP 28/16 (21) CVP 7. Dobutamine gtt decreased to 2.5 mcq/kg/min (8 ml/hr) per PA order. Assessment/Interventions as documented.
[2024-07-30 01:18] LABS: Glucose - Point of Care 163 mg/dl (70-99)
[2024-07-30 02:08] LABS: Glucose - Point of Care 145 mg/dl (70-99)
[2024-07-30] MEDS: TORADOL 15 MG IV (02:17)
--- NOTE | 2024-07-30 02:30 | PTCARENOTE ---
Patient A+A+Ox3. No neurological deficits noted. C.O. 5.58 C.I. 2.49 SVR 931 PAP 27/14 (19) CVP 6. Toradol 15mg IV for pain management. No further changes from previous assessment.
[2024-07-30] MEDS: NOVOLIN R INSULIN INFUSION 100 IV (03:07)
[2024-07-30 03:14] LABS: Glucose - Point of Care 154 mg/dl (70-99)
[2024-07-30 04:05] LABS: Glucose - Point of Care 142 mg/dl (70-99)
[2024-07-30 04:13] LABS: B.E. -2.2 mmol/L; HCO3 22.4 mmol/L (21-28); Ionized Calcium 1.21 mMOL/L (1.15-1.33); O2 Saturation % 96.5 % (94-98); O2 Therapy 8L; PCO2 37 mmHg (35-48); PO2 72 mmHg (83-108); Potassium 4.5 mMOL/L (3.5-5.1); pH 7.39 (7.35-7.45)
[2024-07-30 04:39] LABS: Hematocrit 31.5 % (39.0-52.0); Hemoglobin 10.5 g/dL (13.0-18.0); Mean Corp Hgb Conc. 33.3 g/dL (33.0-37.0); Mean Corpuscular Volume 92.9 fL (80.0-94.0); Platelet Count 242 10^3/uL (130-400); Red Blood Cell Count 3.39 10^6/uL (4.70-6.10); Red Cell Dist. Width 13.1 % (11.5-14.5); White Blood Cell Count 18.9 10^3/uL (4.8-10.8)
[2024-07-30] MEDS: ANCEF 5 IV ×2 (04:46→12:02)
--- NOTE | 2024-07-30 04:50 | PTCARENOTE ---
Patient sleeping. C.O. 6.09 C.I. 2.72 SVR 867 PAP 28/14 (19) CVP 7. Dobutamine gtt decreased to 2 mcq/kg/min (6.4 ml/hr) per PA order. Assessment/Interventions as documented.
[2024-07-30] MEDS: TYLENOL PO (05:14)
[2024-07-30 05:33] LABS: Blood Urea Nitrogen 31 mg/dl (9-20); Calcium 8.6 mg/dl (8.4-10.2); Carbon Dioxide 21 mmol/L (22-30); Chloride 110 mmol/L (98-107); Estimated Creatinine Clearance 89 ml/min; Glucose 142 mg/dl (70-99); Magnesium 2.7 mg/dl (1.6-2.3); Potassium 4.5 mmol/L (3.5-5.1); Sodium 140 mmol/L (135-145); eGFR > 60.00
[2024-07-30] MEDS: DILAUDID 0.5 MG IV ×3 (05:45→19:37)
[2024-07-30 06:05] LABS: Glucose - Point of Care 126 mg/dl (70-99)
--- NOTE | 2024-07-30 06:30 | PTCARENOTE ---
Patient resting in bed. Patient A+A+Ox3. IV Dilaudid 0.5 mg for pain management. EKG completed. AM labs collected and sent. Portable CXR completed. Patient given CHG bath and linens changed. Chest tube dressing changed. Levophed gtt titrated
to off. Dobutamine gtt at 2 mcq/kg/min (6.4 ml/hr). C.O. 6.33 C.I. 2.83 SVR 834 PAP 33/20 (25) CVP 10. After reviewing CXR, PA for CT Surgery contacted Respiratory to place patient on High Flow Oxygen 40L 60%. SpO2 100%.
Assessment/Interventions as documented.
--- NOTE | 2024-07-30 06:45 | W.PN.CT ---
Addendum entered and electronically signed by Tanner Zhang MD 07/30/24 09:05:
I saw and examined the patient.
The PA's note was reviewed and I agree with the note.
Comment:
POD# 1 s/p CABG x 2
Doing well.
Decrease dobutamine to 1 today and hold
Maintain SGC and A-line
Diuresis
D/C mai
OOB/IS
Original Note:
Today's Communication / Plan
-
-pod #1
-no issues overnight
-pO2 72, atelectasis on CXR - started high flow O2. IS 750 so far
-CI 2.83, CO 6.33. Drips: Dobut 2, Insulin. Levo off
-CT outputs: 2 meds 140/180, 2 pleur 100/130 in 12/24 hrs
-slow Dobut wean (low EF)
-continue insulin
-current meds (ASA, Plavix, Zetia, Amio, Feosol/vit C, Neurontin, Protonix). Holding BB while on Dobut
-encourage IS, OOB
Assessment / Plan
-
- MVCAD including ANIMATION PRODUCER of LAD- s/p CABG x 2 (DIRK to LAD, GSV to RPDA) by Dr Zhang on 07/29/24, pod #1
- The intraoperative preoperative SAFIA demonstrated bicbpnob-en-valqza MR (3+) secondary to IIIB dysfunction w/ tethering of both anterior and posterior leaflets w/ subtle prolapse of anterior leaflet. There was pulmonary vein blunting w/o flow
reversal. The LVEF was globally decreased at 35% w/ most severely affected inferior wall. The AV was normal. The RV was normal. MR discussed in multidisciplinary fashion w/ anesthesia & cardiology. MV intervention was not undertaken.
Postoperative ECHO w/ slightly improved heart function but generally grossly unchanged.
- HTN/HLD
- Class 1 obesity (BMI 33)
- Extensive FHx of premature CAD
- Poorly-controlled DM w/ HgbA1c 10.2 to 8.4
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
- Ischemic cardiomyopathy, LVEF 35%
- Cvoyyqml-hp-hcgnsa MR secondary to IIIB dysfunction
- Pre-existing RBBB
- GERD
- Hepatic steatosis
- Migraine with aura
- Acute postop blood loss anemia - stable, no bleeding
- Acute postop atelectasis
- Acute postop hypovolemia with subsequent hypervolemia
- Suspected acute pericarditis/ +rub
Discussed patient care with: Nursing and Care Team
Subjective
Procedure
- s/p CABG x 2 (DIRK to LAD, GSV to RPDA) by Dr Zhang on 07/29/24
-
Date of Service: July 30, 2024
Objective Data
-
PT 17.6 Sec (11.4-14.6) H 07/29/24 15:00
INR 1.42 07/29/24 15:00
APTT 26.6 Sec (23.4-35.0) 07/29/24 15:00
Vital Signs
Vital Signs
Temp Pulse Resp BP Pulse Ox
98.7 F 97 20 110/64 95
07/30/24 01:00 07/30/24 01:08 07/30/24 01:08 07/30/24 01:00 07/30/24 01:08
CT Intake/Output/Weight
07/29/24 07/29/24 07/30/24
06:59 18:59 06:59
Intake Total 124.5 / 782.5 658.0 / 782.5
Output Total 350 / 805 455 / 805
Balance -225.5 / -22.5 203.0 / -22.5
SaO2: 95
Physical Exam
-
General: Awake and AOx3
Cardiovascular: Regular rate & rhythm, No Murmurs and Rub
Respiratory: Decreased Breath Sounds
Sternum: Stable
Incision: Clean, Dry and Dressing Intact
Extremities: Edema +1 (1+ DPs b/l)
Abdomen: soft, nontender, nondistended, + decreased bowel sounds
Data Reviewed
-
Lab Results: Results Reviewed
Medications: Active Meds Reviewed
Chest X-Ray: Report Reviewed and Image Reviewed
ECG: Report Reviewed and Image Reviewed
--- NOTE | 2024-07-30 07:35 | W.PN.CD ---
Today's Communication / Plan
-
-Wean off pressors.
-Extubated and on high flow oxygen.
-A-line and Grethel-Halle with chest tubes in place.
Impression / Plan
-
54 y/o male with RBBB, DM2, hypertension, and dyslipidemia recently saw Dr. Cabrera for chest discomfort. Echo showed ICM with 35-40%. Cath showed multivessel CAD. He is now s/p CABG x 2.
CAD s/p CABG x 2 (DIRK to LAD, GSV to RPDA), Dr. Zhang 07/29/24:
-Extubated
-he remains on dobutamine and Levophed -wean off slowly.
-Chest tube management as per CT surgery.
-Grethel Solange in place, A-line in place.
-Central line in place.
-post-op EKG and tele SR/ST with RBBB
-ASA, statin, BB when able
Mitral regurgitation:
-mild on pre-op echo
-moderate to severe per op report, no intervention
-will need to be monitored over time
ICM:
-EF 35%
-on Farxiga, losartan, spironolactone, and metoprolol as OP- resume GDMT as tolerated when appropriate post-op
-monitor volume
Dyslipidemia:
-statin when able
HTN:
-monitor post-op
RBBB:
-chronic
Obesity:
-will benefit from weight loss long-term
Physical Exam
Vital Signs/Labs
Vital Signs
Temp Pulse Resp BP Pulse Ox
98.5 F 90 20 94/64 100
07/30/24 06:34 07/30/24 06:40 07/30/24 06:40 07/30/24 06:34 07/30/24 06:40
07/29/24 07/30/24 07/31/24
06:59 06:59 06:59
Actual Weight 107.1 kg 107 kg
07/30/24 03:59
07/30/24 03:58
PT 17.6 Sec (11.4-14.6) H 07/29/24 15:00
INR 1.42 07/29/24 15:00
APTT 26.6 Sec (23.4-35.0) 07/29/24 15:00
Magnesium 2.7 mg/dl (1.6-2.3) H 07/30/24 03:58
Physical Exam
Constitutional: No acute distress, Comfortable and Other (on high flow nasal cannula. )
EENT: Anicteric and Moist mucous membranes
Cardiovascular: Rhythm & rate is regular, JVD present, Systolic murmur present and Rub present
Respiratory: Respiratory effort normal and Other (decreased breath sounds with poor inspiratory effort. )
GI: Soft, Non tender and Normal bowel sounds
Neuro/Psych: Alert, Oriented, AO x 3 and Motor deficits absent
Other: Skin and Cath Site
Data Reviewed
-
Date of Service: July 30, 2024
Medical Decision Making: Reviewed Test Results, Independent Historian Assessment, Test Interpretation and Review of Case with other Provider
EKG: Tracing Personally Visualized and interpreted
Echo: Report Reviewed by me
X-Ray/CT/US/MRI/NUC/PET: Image Personally Visualized and interpreted
Medical Tests (PFT, Pathology etc): Discussed with Physician, Discussed with Nurse and Discussed with Patient
Labs: Labs Reviewed by me
Old Records: Reviewed
Critical Care Time (in minutes): 40
--- NOTE | 2024-07-30 07:50 | W.PN.ANS.POP ---
Anesthesia Post Operative
- Anesthesia Post Op Note
Vital Signs Stable-See Nursing Note: Yes
Airway Patent: Yes
Adequate Pain Control: Yes
Change in Mental Status: No
Current Postoperative Nausea & Vomiting: No
Anesthesia Complications: No
General Anesthetic Recall: No
Unplanned Admission: No
Post Op Hydration Adequate: Yes
[2024-07-30 08:02] LABS: Glucose - Point of Care 122 mg/dl (70-99)
[2024-07-30] MEDS: PROTONIX 40 MG PO (08:45)
[2024-07-30] MEDS: NEURONTIN 400 MG PO ×3 (08:45→21:10)
[2024-07-30] MEDS: LASIX 40 MG IV (08:45)
[2024-07-30] MEDS: ZETIA 10 MG PO (08:46)
[2024-07-30] MEDS: VITAMIN C 500 MG PO (08:46)
[2024-07-30] MEDS: LOW STRENGTH ASPIRIN 81 MG PO (08:46)
[2024-07-30] MEDS: PACERONE 200 MG PO ×3 (08:46→21:10)
[2024-07-30] MEDS: PLAVIX 75 MG PO (08:46)
[2024-07-30] MEDS: FEOSOL 325 MG PO (08:46)
[2024-07-30] MEDS: SENOKOT-S 1 TABLET PO ×2 (08:46→19:38)
[2024-07-30] MEDS: LIDOCAINE 4% PATCH 1 PATCH TOPICAL (08:46)
[2024-07-30] MEDS: MAGNESIUM OXIDE PO ×2 (08:47→19:13)
[2024-07-30] MEDS: BACTROBAN 2% OINTMENT 1 APPLIC NASAL ×2 (08:47→19:38)
--- NOTE | 2024-07-30 09:16 | PTCARENOTE ---
assumed care of pt from previous shift RN, sinus rhythm on tele, + peripheral pulses, trace edema to bilateral lower extremities. Right IJ cordis w swan floated to 45, CO 6.43 CI 2.87 CVP 10 PAP 30/13 left radial carly leveled and zeroed, BP 130/64,
lungs diminished, pox 98% on 40L highflo, coughing and deep breathing encouraged. +BS, denies nausea, mai draining yellow, CT x4 w minimal amount of red drainage.
DRIPS: Dobutamine 2mcg
Insulin titrated per glycemic protocol
[2024-07-30 10:07] LABS: Glucose - Point of Care 107 mg/dl (70-99)
[2024-07-30] MEDS: NOVOLOG FLEXPEN 4 UNITS SC ×2 (10:17→16:24)
[2024-07-30 11:58] LABS: Glucose - Point of Care 111 mg/dl (70-99)
[2024-07-30] MEDS: ROXICODONE 5 MG PO (12:02)
--- NOTE | 2024-07-30 12:20 | PTCARENOTE ---
VSS, CI 2.59, dobutamine to be maintained at 1mcg. Pt medicated for pain as ordered.
--- NOTE | 2024-07-30 12:51 | W.PN.INTV ---
Today's Communication / Plan
Recommendations
Continue postoperative care
Wean off oxygen.
Incentive spirometer
Analgesia
Follow chest tube output
Daily chest x-ray
Sign off
Assessment
-
Status post coronary artery bypass 07/29/2024 Dr. Zhang
Postoperative mechanical ventilation
Postoperative anemia-blood loss
Conditions present prior admission:
Hypertension
Type 2 diabetes
Migraines
Hypercholesterolemia
Statin intolerant
History of neuropathy
GERD
Right bundle branch block
Coronary artery disease
Moderate/severe mitral regurgitation
Nephrolithiasis
Hepatic asteatosis
Obesity
History of vertigo
History of herpes zoster 03/2024
Anxiety/panic attacks
Assessment and plan:
Doing well postoperative day 1
Extubated 07/29/2024
Initially on high flow oxygen. Currently on 4 L mid flow. Suspect hypoxemia from atelectasis/hypoventilation.
Not bronchospastic on exam.
Suspect atelectasis: Chest x-ray with low lung volumes. Hypoventilation
Increase mobility as able
Incentive spirometry
Analgesia as able.
-
Anemia noted-no evidence of acute bleeding
Follow H&H serially
Hemodynamics -on low-dose dobutamine to be weaned off.
Arterial line in place/PA catheter in place-will follow hemodynamic
Follow renal function on a daily basis
Metz in place
Chest tube with no excessive drainage-no air leak.
Chest x-ray reviewed: With no pneumothorax or fluid collections. Low lung volumes. Atelectasis
Advance diet. Aspiration precautions.
Head of the bed elevation
Glycemic control per protocol
DVT prophylaxis when safe from the surgical perspective.
No additional recommendation from the critical care perspective
Sign off
Subjective Dataa
Subjective Data
Date of Service:
Date of Service: July 30, 2024
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
Subjective:
Patient denies any significant complaints
On high flow oxygen
Denies phlegm production
Pain is relatively controlled
Objective Data
Data Reviewed
Vital Signs / I&O / Oxygen:
Vital Signs
Temp Pulse Resp BP Pulse Ox
98.6 F 87 20 122/80 98
07/30/24 12:00 07/30/24 11:56 07/30/24 12:00 07/30/24 11:00 07/30/24 12:00
Intake and Output
07/29/24 07/30/24 07/31/24
06:59 06:59 06:59
Intake Total 994.5 / 994.5 142.4 / 142.4
Output Total 1080 / 1080 865 / 865
Balance -85.5 / -85.5 -722.6 / -722.6
SaO2 [CPAP] 92
SaO2 [SIMV] 92
SaO2 98
Nasal Cannula flow liters per 4
minute
Physical Exam
General: Comfortable
HEENT: Normocephalic
Cardiovascular: S1-S2 and Other (Sternotomy intact)
Respiratory: Chest Tube (No air leak or excessive drainage)
GI: Soft and Non Distended
Neurology: Awake, Alert and No Motor Deficits
Skin: Warm
Labs/Micro/Reports
Lab Data
07/30/24 03:59
07/30/24 03:58
Laboratory Results
07/29/24 07/29/24 07/29/24
15:00 16:58 20:14
PT 17.6 H
INR 1.42
APTT 26.6
pH 7.30 L 7.35 7.36
pCO2 41 39 37
pO2 77 L 78 L 77 L
HCO3 20.2 L 21.5 20.9 L
O2 Delivery Level Not Reportable Not Reportable
07/30/24
03:58
PT
INR
APTT
pH 7.39
pCO2 37
pO2 72 L
HCO3 22.4
O2 Delivery Level 8l
[2024-07-30] MEDS: NSS IV (13:40)
[2024-07-30] MEDS: NOVOLOG FLEXPEN SC (13:40)
[2024-07-30 14:14] LABS: Glucose - Point of Care 81 mg/dl (70-99)
[2024-07-30] MEDS: TYLENOL 1000 MG PO ×2 (14:14→21:10)
--- NOTE | 2024-07-30 14:51 | PTCARENOTE ---
assisted pt from bed to chair w 2 person assist. pt tolerated well without large output from CTs.
[2024-07-30 16:28] LABS: Glucose - Point of Care 113 mg/dl (70-99)
[2024-07-30 18:24] LABS: Glucose - Point of Care 196 mg/dl (70-99)
--- NOTE | 2024-07-30 20:00 | PTCARENOTE ---
Assumed care of the patient at 1900. Patient in bed, AOx3, c/o moderate pain in his sternum. See AUG. NSR with RBBB on telemetry, rate 80's, +1 generalized edema, pulses palpable, rub heard on auscultation, RRR. RIJ Cordis/[place] daniel catheter and L
radial art line present, all lines leveled and zeroed. CTx4 to -[address] cm [address] suction in place draining serosanguineous drainage, no air leak, tidaling, or crepitus noted; lungs dim at the bases on 2LNC, occasional dry cough, refusing IS at this time,
encouraged to use when able. Abdomen SNT, obese, BS hypoactive, occasional hiccups noted, tolerating PO. Patient DTV - plan discussed to encourage voiding when able, pt indicated understanding. Bladder scanned for 255 - will reassess per protocol.
All surgical sites intact. On insulin, dobutamine, KVOs. PIV x1 INT. See nursing worklist for additional intervention details.
[2024-07-30] MEDS: NEURONTIN 600 MG PO (21:10)
[2024-07-30] MEDS: DILAUDID 0.25 MG IV (21:10)
[2024-07-31] VITALS (24 sets, daily range): BP systolic 93–138; BP diastolic 56–88; BMI 34.4
[2024-07-31 00:11] LABS: Glucose - Point of Care 112 mg/dl (70-99)
[2024-07-31 00:11] LABS: Glucose - Point of Care 171 mg/dl (70-99)
--- NOTE | 2024-07-31 00:30 | PTCARENOTE ---
Patient bladder scanned for 382 - stood at bedside with asstx2 and voided 260 mLs. CVNP aware, continue to monitor patient. No dumping noted from CTs. Patient returned to bed and made comfortable. Pain medication given per order, see MAR. Otherwise
sleeping between care. Assessment of needs ongoing, call torres within reach.
[2024-07-31] MEDS: DILAUDID 0.5 MG IV ×3 (00:40→07:55)
[2024-07-31] MEDS: DOBUTREX 500 MG 250 IV (01:01)
[2024-07-31 01:05] LABS: Glucose - Point of Care 78 mg/dl (70-99)
[2024-07-31 01:08] LABS: Glucose - Point of Care 95 mg/dl (70-99)
[2024-07-31 02:05] LABS: Glucose - Point of Care 116 mg/dl (70-99)
[2024-07-31 03:06] LABS: Glucose - Point of Care 103 mg/dl (70-99)
[2024-07-31 04:07] LABS: Glucose - Point of Care 125 mg/dl (70-99)
[2024-07-31 04:23] LABS: Mixed Venous O2 Saturation 60.2 %
[2024-07-31 04:47] LABS: Hematocrit 30.7 % (39.0-52.0); Mean Corp Hgb Conc. 32.6 g/dL (33.0-37.0); Mean Corpuscular Hgb 30.9 pg (27.0-31.0); Mean Corpuscular Volume 94.8 fL (80.0-94.0); Mean Platelet Volume 10.6 fL (7.4-10.4); Platelet Count 220 10^3/uL (130-400); Red Blood Cell Count 3.24 10^6/uL (4.70-6.10); Red Cell Dist. Width 13.3 % (11.5-14.5); White Blood Cell Count 18.4 10^3/uL (4.8-10.8)
--- NOTE | 2024-07-31 05:00 | PTCARENOTE ---
Patient OOB to chair, tolerated activity, c/o some dizziness. Able to use urinal with assistance to void 200 mLs. Call torres within reach.
[2024-07-31 05:04] LABS: Glucose - Point of Care 130 mg/dl (70-99)
[2024-07-31] MEDS: TYLENOL 1000 MG PO ×3 (05:07→21:37)
[2024-07-31 05:08] LABS: Blood Urea Nitrogen 34 mg/dl (9-20); Calcium 8.6 mg/dl (8.4-10.2); Carbon Dioxide 23 mmol/L (22-30); Chloride 105 mmol/L (98-107); Estimated Creatinine Clearance 107 ml/min; Glucose 111 mg/dl (70-99); Magnesium 2.5 mg/dl (1.6-2.3); Potassium 4.4 mmol/L (3.5-5.1); Sodium 136 mmol/L (135-145); eGFR > 60.00
--- NOTE | 2024-07-31 05:20 | W.PN.CT ---
Addendum entered and electronically signed by Tanner Zhang MD 07/31/24 09:59:
I saw and examined the patient.
The PA's note was reviewed and I agree with the note.
Comment:
POD#2 s/p CABG x 2
Doing well.
D/C dobutamine today
D/C CTs
D/C A-line and SGC later today once stable off dobutamine
Diuresis & flomax
OOB/IS
Original Note:
Today's Communication / Plan
-
-pod #2
-no issues overnight
-on 2 L NC, requested Mucinex
-CI 2.78, CO 6.22, SvO2 60.2%. Drips: Dobutamine 1, Insulin 4
-CT outputs: 2 meds 45/115, 2 pleural 55/115 in 12/24 hrs
-Mai DCd, UOP 260/1375 with lasix 40 mg IV x1, incomplete voids after mai removal
-current meds (ASA, Plavix, Zetia, Amio, Feosol/vit C, Neurontin, Protonix). Holding BB while on Dobutamine
-encourage IS, OOB
Assessment / Plan
-
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
- The intraoperative preoperative SAFIA demonstrated kcavzpjk-su-sgzqca MR (3+) secondary to IIIB dysfunction w/ tethering of both anterior and posterior leaflets w/ subtle prolapse of anterior leaflet. There was pulmonary vein blunting w/o flow
reversal. The LVEF was globally decreased at 35% w/ most severely affected inferior wall. The AV was normal. The RV was normal. MR discussed in multidisciplinary fashion w/ anesthesia & cardiology. MV intervention was not undertaken.
Postoperative ECHO w/ slightly improved heart function but generally grossly unchanged.
- HTN/HLD
- Class 1 obesity (BMI 33)
- Extensive FHx of premature CAD
- Poorly-controlled DM w/ HgbA1c 10.2 to 8.4
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
- Ischemic cardiomyopathy, LVEF 35%
- Hsjbznes-cl-oirpaq MR secondary to IIIB dysfunction
- Pre-existing RBBB
- GERD
- Hepatic steatosis
- Migraine with aura
- Acute postop blood loss anemia - stable, no bleeding
- Acute postop atelectasis
- Acute postop hypovolemia with subsequent hypervolemia
- Suspected acute pericarditis/ +rub
Subjective
Procedure
- s/p CABG x 2 (DIRK to LAD, GSV to RPDA) by Dr Zhang on 07/29/24
-
Date of Service: July 31, 2024
Objective Data
-
Lab Results
07/31/24 04:19
07/31/24 04:19
PT 17.6 Sec (11.4-14.6) H 07/29/24 15:00
INR 1.42 07/29/24 15:00
APTT 26.6 Sec (23.4-35.0) 07/29/24 15:00
Vital Signs
Vital Signs
Temp Pulse Resp BP Pulse Ox
98.4 F 90 22 122/77 94
07/31/24 05:00 07/31/24 05:00 07/31/24 05:00 07/31/24 05:00 07/31/24 05:00
CT Intake/Output/Weight
07/30/24 07/30/24 07/31/24
06:59 18:59 06:59
Intake Total 870.0 / 994.5 808.6 / 1521.4 712.8 / 1521.4
Output Total 730 / 1080 1245 / 1605 360 / 1605
Balance 140.0 / -85.5 -436.4 / -83.6 352.8 / -83.6
SaO2: 94
Physical Exam
-
General: Awake, Oriented and AOx3
Cardiovascular: Regular rate & rhythm, No Murmurs and No Rub
Respiratory: Clear, Equal and Decreased Breath Sounds
Sternum: Stable
Incision: Clean, Dry and Intact
Extremities: No Edema and No Erythema
Data Reviewed
-
Lab Results: Results Reviewed
Medications: Active Meds Reviewed
Chest X-Ray: Report Reviewed and Image Reviewed
ECG: Report Reviewed
[2024-07-31] MEDS: NOVOLIN R INSULIN INFUSION 100 IV (05:56)
[2024-07-31 07:02] LABS: Glucose - Point of Care 105 mg/dl (70-99)
[2024-07-31] MEDS: FEOSOL 325 MG PO (07:55)
[2024-07-31] MEDS: LOW STRENGTH ASPIRIN 81 MG PO (07:55)
[2024-07-31] MEDS: PACERONE 200 MG PO ×3 (07:55→21:36)
[2024-07-31] MEDS: NEURONTIN 400 MG PO ×3 (07:55→21:37)
[2024-07-31] MEDS: MUCINEX 600 MG PO ×2 (07:55→19:35)
[2024-07-31] MEDS: PLAVIX 75 MG PO (07:55)
[2024-07-31] MEDS: ZETIA 10 MG PO (07:56)
[2024-07-31] MEDS: LIDOCAINE 4% PATCH TOPICAL (07:56)
[2024-07-31] MEDS: PROTONIX 40 MG PO (07:56)
[2024-07-31] MEDS: SENOKOT-S 1 TABLET PO ×2 (07:56→19:36)
[2024-07-31] MEDS: MAGNESIUM OXIDE 500 MG PO ×2 (07:56→19:36)
[2024-07-31] MEDS: VITAMIN C 500 MG PO (07:56)
[2024-07-31] MEDS: NOVOLOG FLEXPEN 4 UNITS SC ×3 (08:00→16:51)
--- NOTE | 2024-07-31 08:00 | PTCARENOTE ---
Assumed care of the patient from previous RN. walking rounds completed. oob in chair at time of assessment. AAOx3. NSR with BBB. HR 80's, +1 generalized edema, +1-2 in hands.pulses palpable. CTx4 to -20 cm wall suction. for d/c today. 2LNC. weaned
to RA. 93%. IS to 1000. + gas. voiding yellow All surgical sites intact. Remains on insulin, dobutamine gtts. usual lines remain at this time. will continue ot monitor.
[2024-07-31] MEDS: BACTROBAN 2% OINTMENT 1 APPLIC NASAL ×2 (08:01→19:35)
[2024-07-31] MEDS: KCL 10 MEQ PO (09:26)
[2024-07-31] MEDS: FLOMAX 0.4 MG PO (09:26)
[2024-07-31] MEDS: LASIX 40 MG IV ×2 (09:28→16:20)
[2024-07-31 09:33] LABS: Glucose - Point of Care 240 mg/dl (70-99)
--- NOTE | 2024-07-31 10:02 | W.PN.CD ---
Today's Communication / Plan
-
- Wean off pressors
- OOB to chair
- IS
Impression / Plan
-
54 y/o male with RBBB, DM2, hypertension, and dyslipidemia recently saw Dr. Cabrera for chest discomfort. Echo showed ICM with 35-40%. Cath showed multivessel CAD. He is now s/p CABG x 2.
CAD s/p CABG x 2 (DIRK to LAD, GSV to RPDA), Dr. Zhang 07/29/24:
-Improved and off the high flow to nc 2L
- Wean off pressors
- D/c chest tubes, SGC and A line
-Central line in place.
-post-op EKG and tele SR/ST with RBBB
-ASA, statin, BB when able
Mitral regurgitation:
-mild on pre-op echo
-moderate to severe per op report, no intervention
-will need to be monitored over time
ICM:
-EF 35%
-on Farxiga, losartan, spironolactone, and metoprolol as OP- resume GDMT as tolerated when appropriate post-op
-monitor volume
Dyslipidemia:
-statin when able
HTN:
-monitor post-op
RBBB:
-chronic
Obesity:
-will benefit from weight loss long-term
Physical Exam
Vital Signs/Labs
Vital Signs
Temp Pulse Resp BP Pulse Ox
98.9 F 89 15 93/56 93
07/31/24 07:00 07/31/24 09:00 07/31/24 09:00 07/31/24 09:00 07/31/24 09:00
07/30/24 07/31/24 08/01/24
06:59 06:59 06:59
Actual Weight 107 kg 110.1 kg
07/31/24 04:19
07/31/24 04:19
PT 17.6 Sec (11.4-14.6) H 07/29/24 15:00
INR 1.42 07/29/24 15:00
APTT 26.6 Sec (23.4-35.0) 07/29/24 15:00
Magnesium 2.5 mg/dl (1.6-2.3) H 07/31/24 04:19
Physical Exam
Constitutional: No acute distress and Comfortable
EENT: Anicteric and Moist mucous membranes
Cardiovascular: Rhythm & rate is regular, Pedal edema is absent and JVD pressure is normal
Respiratory: Respiratory effort normal and Lungs clear to auscul.
GI: Soft, Distention absent and Normal bowel sounds
Neuro/Psych: Alert, Oriented and AO x 3
Other: Skin
Data Reviewed
-
Date of Service: July 31, 2024
Medical Decision Making: Reviewed Test Results, Test Interpretation and Review of Case with other Provider
EKG: Tracing Personally Visualized and interpreted
Echo: Report Reviewed by me
Labs: Labs Reviewed by me
Old Records: Reviewed
Critical Care Time (in minutes): 32
[2024-07-31 11:18] LABS: Glucose - Point of Care 236 mg/dl (70-99)
--- NOTE | 2024-07-31 12:05 | PTCARENOTE ---
d/c chest tubes without difficulty
[2024-07-31] MEDS: ROXICODONE 5 MG PO (13:11)
[2024-07-31 13:15] LABS: Glucose - Point of Care 131 mg/dl (70-99)
[2024-07-31 15:55] LABS: Glucose - Point of Care 134 mg/dl (70-99)
[2024-07-31] MEDS: KCL 20 MEQ PO (16:19)
[2024-07-31] MEDS: NOVOLOG FLEXPEN-MODERATE RESISTANCE SC (16:52)
[2024-07-31] MEDS: NSS 500 IV (16:52)
[2024-07-31] MEDS: ROXICODONE 2.5 MG PO ×2 (16:59→23:17)
[2024-07-31] MEDS: LANTUS 0.1 UNITS SC (17:23)
[2024-07-31] MEDS: NOVOLOG FLEXPEN SC (17:23)
--- NOTE | 2024-07-31 18:05 | PTCARENOTE ---
lantus given, insulin gtt off two hours later.
--- NOTE | 2024-07-31 20:00 | PTCARENOTE ---
received pt from previous rn. pt AAOx4, VSS, NSR w/ BBB per tele monitor HR 90s, +1 generalized edema, +pulses, pox 91% on RA, lungs diminished, non productive cough, +bs, voids clear yellow urine in urinal, all surgical sites intact, RIJ Cordis
infusing KVO, PIVx1 intact, plan of care discussed questions encouraged.
[2024-07-31] MEDS: TORADOL 15 MG IV (20:03)
[2024-07-31 21:37] LABS: Glucose - Point of Care 293 mg/dl (70-99)
[2024-07-31] MEDS: NEURONTIN 600 MG PO (21:46)
--- NOTE | 2024-07-31 23:31 | PTCARENOTE ---
VSS, NSR per tele monitor, pt c/o pain at sternal incision see MAR. assessment remains unchanged otherwise.
[2024-08-01] VITALS (9 sets, daily range): BP systolic 107–138; BP diastolic 75–91; PULSE 92; O2SAT 96; BMI 34.4
--- NOTE | 2024-08-01 04:11 | W.PN.CT ---
Today's Communication / Plan
-
-pod #3
-no issues overnight
-on 2 L NC, need to encourage IS (1250 so far)
-diuresed well with 40 iv bid Lasix on 07/31 - UO 300/2150 in 12/24 hrs - continue
-labs pending
-current meds (ASA, Plavix, Zetia, Amio, Feosol/vit C, Neurontin, Protonix). Will start low-dose Toprol
-encourage IS, OOB, ambulate
Assessment / Plan
-
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
- The intraoperative preoperative SAFIA demonstrated scthjvbe-id-gcdfoy MR (3+) secondary to IIIB dysfunction w/ tethering of both anterior and posterior leaflets w/ subtle prolapse of anterior leaflet. There was pulmonary vein blunting w/o flow
reversal. The LVEF was globally decreased at 35% w/ most severely affected inferior wall. The AV was normal. The RV was normal. MR discussed in multidisciplinary fashion w/ anesthesia & cardiology. MV intervention was not undertaken.
Postoperative ECHO w/ slightly improved heart function but generally grossly unchanged.
- HTN/HLD
- Class 1 obesity (BMI 33)
- Extensive FHx of premature CAD
- Poorly-controlled DM w/ HgbA1c 10.2 to 8.4
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
- Ischemic cardiomyopathy, LVEF 35%
- Luothhld-gv-qdubbr MR secondary to IIIB dysfunction
- Pre-existing RBBB
- GERD
- Hepatic steatosis
- Migraine with aura
- Acute postop blood loss anemia - stable, no bleeding
- Acute postop atelectasis
- Acute postop hypovolemia with subsequent hypervolemia
- Suspected acute pericarditis/ +rub
Discussed patient care with: Nursing and Care Team
Subjective
Procedure
- s/p CABG x 2 (DIRK to LAD, GSV to RPDA) by Dr Zhang on 07/29/24
-
Date of Service: August 01, 2024
Objective Data
-
PT 17.6 Sec (11.4-14.6) H 07/29/24 15:00
INR 1.42 07/29/24 15:00
APTT 26.6 Sec (23.4-35.0) 07/29/24 15:00
Vital Signs
Vital Signs
Temp Pulse Resp BP Pulse Ox
98.6 F 84 18 107/77 95
08/01/24 03:54 08/01/24 03:48 08/01/24 03:54 08/01/24 03:48 08/01/24 03:54
CT Intake/Output/Weight
07/31/24 07/31/24 08/01/24
06:59 18:59 06:59
Intake Total 750.0 / 1595.8 694.8 / 704.8 10 / 704.8
Output Total 600 / 1865 1870 / 2170 300 / 2170
Balance 150.0 / -269.2 -1175.2 / -1465.2 -290 / -1465.2
SaO2: 95
Physical Exam
-
General: Awake and AOx3
Cardiovascular: Regular rate & rhythm, No Murmurs and Rub
Respiratory: Decreased Breath Sounds
Sternum: Stable
Incision: Clean, Dry and Dressing Intact
Extremities: Edema +1 (hands and legs b/l)
Abdomen: soft, nontender, nondistended, + bowel sounds, no BM, + flatus
Data Reviewed
-
Lab Results: Results Reviewed
Medications: Active Meds Reviewed
Chest X-Ray: Report Reviewed and Image Reviewed
ECG: Report Reviewed and Image Reviewed
--- NOTE | 2024-08-01 04:47 | PTCARENOTE ---
routine labs obtained, VSS, NSR w/ BBB per tele monitor HR 80s. assessment remains unchanged otherwise
[2024-08-01 05:04] LABS: Hematocrit 28.3 % (39.0-52.0); Hemoglobin 9.4 g/dL (13.0-18.0); Mean Corp Hgb Conc. 33.2 g/dL (33.0-37.0); Mean Corpuscular Hgb 31.6 pg (27.0-31.0); Mean Corpuscular Volume 95.3 fL (80.0-94.0); Mean Platelet Volume 10.9 fL (7.4-10.4); Platelet Count 229 10^3/uL (130-400); Red Blood Cell Count 2.97 10^6/uL (4.70-6.10); Red Cell Dist. Width 13.1 % (11.5-14.5); White Blood Cell Count 15.7 10^3/uL (4.8-10.8)
[2024-08-01 05:31] LABS: Blood Urea Nitrogen 40 mg/dl (9-20); Calcium 8.6 mg/dl (8.4-10.2); Carbon Dioxide 28 mmol/L (22-30); Chloride 100 mmol/L (98-107); Estimated Creatinine Clearance 108 ml/min; Glucose 218 mg/dl (70-99); Magnesium 2.3 mg/dl (1.6-2.3); Potassium 4.4 mmol/L (3.5-5.1); Sodium 134 mmol/L (135-145); eGFR > 60.00
[2024-08-01] MEDS: TYLENOL 1000 MG PO ×3 (07:23→22:25)
[2024-08-01] MEDS: NOVOLOG FLEXPEN-MODERATE RESISTANCE 5 UNITS SC (08:19)
[2024-08-01] MEDS: NOVOLOG FLEXPEN 5 UNITS SC (08:19)
[2024-08-01 08:22] LABS: Glucose - Point of Care 260 mg/dl (70-99)
[2024-08-01] MEDS: LOW STRENGTH ASPIRIN 81 MG PO (08:33)
[2024-08-01] MEDS: MAGNESIUM OXIDE 500 MG PO ×2 (08:33→19:24)
[2024-08-01] MEDS: TOPROL XL 12.5 MG PO (08:33)
[2024-08-01] MEDS: ZETIA 10 MG PO (08:34)
[2024-08-01] MEDS: NEURONTIN 400 MG PO ×3 (08:34→22:25)
[2024-08-01] MEDS: VITAMIN C 500 MG PO (08:34)
[2024-08-01] MEDS: FLOMAX 0.4 MG PO (08:34)
[2024-08-01] MEDS: PROTONIX 40 MG PO (08:34)
[2024-08-01] MEDS: FARXIGA 10 MG PO (08:34)
[2024-08-01] MEDS: LASIX 40 MG IV (08:34)
[2024-08-01] MEDS: PLAVIX 75 MG PO (08:34)
[2024-08-01] MEDS: FEOSOL 325 MG PO (08:34)
[2024-08-01] MEDS: SENOKOT-S 1 TABLET PO ×2 (08:34→19:24)
[2024-08-01] MEDS: MUCINEX 600 MG PO ×2 (08:34→19:24)
[2024-08-01] MEDS: PACERONE 200 MG PO ×2 (08:34→17:14)
[2024-08-01] MEDS: AMARYL 4 MG PO (08:34)
[2024-08-01] MEDS: BACTROBAN 2% OINTMENT 1 APPLIC NASAL ×2 (08:35→19:24)
--- NOTE | 2024-08-01 08:40 | PN.DE.MGMTRT ---
Insulin Management
- -
08/01/2024: Diabetes Management Consult
54 year old male who was evaluated by CT surgery in the OP setting and was deemed a candidate for revascularization. He underwent CABG on 07/29/2024 w/o complications. PMH: CAD w/extensive family h/o CAD and early mortality, ICM with decreased LVEF
35%, HTN, HLD, Migraines, Neuropathy, GERD, RBBB, Moderate/severe mitral regurgitation, Nephrolithiasis, Hepatic asteatosis, Obesity, h/o vertigo, h/o Herpes zoster, Anxiety/panic attacks and T2DM. A1C 8.4%, Cr .8, eGFR >60. Pt was managed on
glycemic protocol and transitioned off yesterday to SQ insulin.
Pt awake, alert, oriented, sitting up in chair, offers no complaints, able to discuss diabetes care.
POD #3, doing well. States he was taking Glimepiride 40mg daily, Farxiga 410mg daily, Metformin 1000mg XL BID and Trulicity Q Mondays.
His Glucose has remained >200 since transitioning off insulin drip. HS glucose was 293, FBG 218(V) and 260 POC this AM.
Had a lengthy discussion with pt regarding optimal glucose control to avoid risk of post-op complications.
Discussed starting Lantus and pt was agreeable. Will start Lantus 15 units @ HS.
Resume his OP regimen, Metformin 1000mg BID, 1st dose NOW. Glimepiride 4mg daily and Farxiga 10mg daily. Change to low corrective insulin.
Will cont to follow and make further adjustments of necessary.
Pt states he has a working meter at home with enough supplies. Will ask Diabetes RN educator to provide insulin instructions.
Diabetes History
- -
Type of Diabetes: 2 requiring insulin
Pre-Admission Diabetes Regimen
08/01/24
04:44
Creatinine 1.0
Lab Results
Hemoglobin A1c 8.4 % (4.0-5.6) H 07/14/24 08:59
Insulin Pump Settings
IP Diabetes Regimen
07/31/24 07/31/24 07/31/24
09:31 11:16 13:13
Glucose
POC Glucose 240 H 236 H 131 H
07/31/24 07/31/24 08/01/24
15:53 21:35 04:44
Glucose 218 H
POC Glucose 134 H 293 H
08/01/24
08:18
Glucose
POC Glucose 260 H
Patient Education
[2024-08-01] MEDS: LIDOCAINE 4% PATCH TOPICAL (09:17)
[2024-08-01] MEDS: MAALOX PLUS 1 TABLET PO (09:17)
[2024-08-01] MEDS: GLUCOPHAGE 500 MG PO (09:45)
--- NOTE | 2024-08-01 10:25 | PTCARENOTE ---
assumed care of pt from previous shift RN, sinus rhythm on tele w BBB, VSS, + peripheral pulses, +1 edema to bilateral lower extremities. Lungs diminished, pox 96 coughing and deep breathing encouraged. +bs, tolerating PO intake. Voids
spontaneously. Right IJ cordis and PIV flush easily. Surgical sites stable. plan of care reviewed and questions encouraged.
[2024-08-01 13:35] LABS: Glucose - Point of Care 233 mg/dl (70-99)
[2024-08-01] MEDS: NOVOLOG FLEXPEN-LOW RESISTANCE 2 UNITS SC ×2 (13:35→18:22)
[2024-08-01] MEDS: NSS IV (15:29)
[2024-08-01] MEDS: GLUCOPHAGE 1000 MG PO (17:14)
--- NOTE | 2024-08-01 17:28 | W.PN.CD ---
Today's Communication / Plan
-
Doing well.
Agree with management
Aggressive secondary prevention appropriate
Consider move Entresto from Losartan when further out from surgery
Impression / Plan
-
54 y/o male with RBBB, DM2, hypertension, and dyslipidemia recently saw Dr. Cabrera for chest discomfort. Echo showed ICM with 35-40%. Cath showed multivessel CAD. He is now s/p CABG x 2.
CAD s/p CABG x 2 (DIRK to LAD, GSV to RPDA), Dr. Zhang 07/29/24:
-Improved and off the high flow to nc 2L
- Wean off pressors
- D/c chest tubes, SGC and A line
-Central line in place.
-post-op EKG and tele SR/ST with RBBB
-ASA, statin, BB when able
Mitral regurgitation:
-mild on pre-op echo
-moderate to severe per op report, no intervention
-will need to be monitored over time
ICM:
-EF 35%
-on Farxiga, losartan, spironolactone, and metoprolol as OP- resume GDMT as tolerated when appropriate post-op
-monitor volume
Dyslipidemia:
-statin when able
HTN:
-monitor post-op
RBBB:
-chronic
Obesity:
-will benefit from weight loss long-term
Physical Exam
Vital Signs/Labs
Vital Signs
Temp Pulse Resp BP Pulse Ox
98.4 F 94 20 117/75 95
08/01/24 15:00 08/01/24 16:00 08/01/24 15:00 08/01/24 15:05 08/01/24 15:00
07/31/24 08/01/24 08/02/24
06:59 06:59 06:59
Actual Weight 110.1 kg 110.1 kg
08/01/24 04:44
08/01/24 04:44
PT 17.6 Sec (11.4-14.6) H 07/29/24 15:00
INR 1.42 07/29/24 15:00
APTT 26.6 Sec (23.4-35.0) 07/29/24 15:00
Magnesium 2.3 mg/dl (1.6-2.3) 08/01/24 04:44
Physical Exam
Constitutional: No acute distress
EENT: Anicteric
Cardiovascular: Rhythm & rate is regular and Pedal edema is absent
Respiratory: Respiratory effort normal and Lungs clear to auscul. (decrease left base)
GI: Soft and Distention absent
Neuro/Psych: Alert
Data Reviewed
-
Date of Service: August 01, 2024
[2024-08-01 18:13] LABS: Glucose - Point of Care 201 mg/dl (70-99)
--- NOTE | 2024-08-01 19:30 | PTCARENOTE ---
received pt from previous rn. pt AAOx4, VSS, NSR w/ BBB per tele monitor HR 90s, +1 generalized edema, +pulses, pox 98% on RA, lungs diminished, non productive cough, +bs, voids clear yellow urine in urinal, all surgical sites intact, PIVx1 intact,
plan of care discussed questions encouraged.
[2024-08-01] MEDS: NEURONTIN 600 MG PO (22:25)
[2024-08-01] MEDS: PACERONE 400 MG PO (22:25)
[2024-08-01] MEDS: LANTUS 0.15 UNITS SC (22:50)
[2024-08-01 22:53] LABS: Glucose - Point of Care 172 mg/dl (70-99)
--- NOTE | 2024-08-01 23:00 | PTCARENOTE ---
report received from previous RN, walking rounds done. pt AAOx4, denies any pain at this time. VSS. SR w BBB on monitor. + peripheral pulses, +1 edema to B/L LE's. B/L breath sounds present, POX 9% on room air, IS encouraged. +BS. voids
spontaneously. PIV intact and patent. all surgical sites stable. see worklist for full assessment, VS, and interventions.
[2024-08-02] VITALS (9 sets, daily range): BP systolic 98–136; BP diastolic 62–85; PULSE 81; O2SAT 97–98; BMI 34.1
--- NOTE | 2024-08-02 03:54 | W.PN.CT ---
Today's Communication / Plan
-
Plan:
-No major issues overnight. Hemodynamically and neurologically intact
-Off all drips
-Will increase Toprol XL to 25 mg QD from 12.5 mg PO QD
-F/U 2-view cxr
-F/U AM labs (pending)
-Cont. current meds (ASA, Plavix, Zetia, Amio, Toprol XL, Neurontin, Protonix)
-Diabetes education/management following
-Check wt today. Cont. diuresis
-Encourage use of IS
-OOB into chair/Ambulate
-Home later today vs tomorrow
Assessment / Plan
-
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
- The intraoperative preoperative SAFIA demonstrated ydrxivdi-gt-cuomjn MR (3+) secondary to IIIB dysfunction w/ tethering of both anterior and posterior leaflets w/ subtle prolapse of anterior leaflet. There was pulmonary vein blunting w/o flow
reversal. The LVEF was globally decreased at 35% w/ most severely affected inferior wall. The AV was normal. The RV was normal. MR discussed in multidisciplinary fashion w/ anesthesia & cardiology. MV intervention was not undertaken.
Postoperative ECHO w/ slightly improved heart function but generally grossly unchanged.
- HTN/HLD
- Class 1 obesity (BMI 33)
- Extensive FHx of premature CAD
- Poorly-controlled DM w/ HgbA1c 10.2 to 8.4
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
- Ischemic cardiomyopathy, LVEF 35%
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
- Pre-existing RBBB
- GERD
- Hepatic steatosis
- Migraine with aura
- Acute postop blood loss anemia - stable, no bleeding
- Acute postop atelectasis
- Acute postop hypovolemia with subsequent hypervolemia
- Suspected acute pericarditis/ +rub
Discussed patient care with: Cardiology, Nursing, Respiratory Therapy, Pharmacy and Care Team
Subjective
Procedure
- s/p CABG x 2 (DIRK to LAD, GSV to RPDA) by Dr Zhang on 07/29/24
-
Date of Service: August 02, 2024
Pt c/o mild incisional pain, otherwise feels well, no BM yet, ambulating halls without difficulty
Objective Data
-
PT 17.6 Sec (11.4-14.6) H 07/29/24 15:00
INR 1.42 07/29/24 15:00
APTT 26.6 Sec (23.4-35.0) 07/29/24 15:00
Vital Signs
Vital Signs
Temp Pulse Resp BP Pulse Ox
98.6 F 90 18 132/79 95
08/01/24 23:25 08/02/24 01:00 08/01/24 23:25 08/01/24 22:55 08/02/24 01:00
CT Intake/Output/Weight
08/01/24 08/01/24 08/02/24
06:59 18:59 06:59
Intake Total 10 / 704.8 110 / 110
Output Total 300 / 2170 400 / 700 300 / 700
Balance -290 / -1465.2 -290 / -590 -300 / -590
SaO2: 95 (RA)
Physical Exam
-
General: Awake, Oriented and AOx3
Cardiovascular: Regular rate & rhythm, No Murmurs, No Rub and No Gallop
Respiratory: Decreased Breath Sounds (at bases, otherwise clear)
Sternum: Stable
Incision: Clean, Dry, Intact and Dressing Intact
Extremities: No Edema
Data Reviewed
-
Lab Results: Results Reviewed
Medications: Active Meds Reviewed
Chest X-Ray: Report Reviewed and Image Reviewed
ECG: Report Reviewed and Image Reviewed
--- NOTE | 2024-08-02 05:10 | PTCARENOTE ---
no acute changes. SR BBB 70s-80s. POX 97% on room air. all surgical sites stable. AM labs drawn and sent. pt resting between care.
[2024-08-02] MEDS: TYLENOL 1000 MG PO ×3 (05:12→22:23)
[2024-08-02] MEDS: TORADOL 15 MG IV (05:12)
[2024-08-02 05:28] LABS: Hematocrit 30.7 % (39.0-52.0); Mean Corp Hgb Conc. 32.6 g/dL (33.0-37.0); Platelet Count 316 10^3/uL (130-400); Red Blood Cell Count 3.23 10^6/uL (4.70-6.10); Red Cell Dist. Width 12.9 % (11.5-14.5); White Blood Cell Count 14.5 10^3/uL (4.8-10.8)
[2024-08-02 05:46] LABS: Blood Urea Nitrogen 36 mg/dl (9-20); Calcium 8.9 mg/dl (8.4-10.2); Carbon Dioxide 27 mmol/L (22-30); Chloride 101 mmol/L (98-107); Estimated Creatinine Clearance 108 ml/min; Glucose 165 mg/dl (70-99); Magnesium 2.4 mg/dl (1.6-2.3); Potassium 4.5 mmol/L (3.5-5.1); Sodium 136 mmol/L (135-145); eGFR > 60.00
[2024-08-02 07:54] LABS: Glucose - Point of Care 179 mg/dl (70-99)
[2024-08-02] MEDS: NOVOLOG FLEXPEN-LOW RESISTANCE 1 UNITS SC ×3 (07:54→18:21)
[2024-08-02] MEDS: BACTROBAN 2% OINTMENT 1 APPLIC NASAL (07:55)
[2024-08-02] MEDS: LASIX 40 MG IV (08:13)
[2024-08-02] MEDS: MIRALAX 17 GRAMS PO ×2 (08:14→23:15)
[2024-08-02] MEDS: GLUCOPHAGE 1000 MG PO ×2 (08:14→16:47)
[2024-08-02] MEDS: AMARYL 4 MG PO (08:14)
[2024-08-02] MEDS: PLAVIX 75 MG PO (08:15)
[2024-08-02] MEDS: MAGNESIUM OXIDE 500 MG PO ×2 (08:15→21:19)
[2024-08-02] MEDS: LOW STRENGTH ASPIRIN 81 MG PO (08:15)
[2024-08-02] MEDS: PACERONE 200 MG PO ×3 (08:15→22:23)
[2024-08-02] MEDS: ZETIA 10 MG PO (08:15)
[2024-08-02] MEDS: FEOSOL 325 MG PO (08:15)
[2024-08-02] MEDS: PROTONIX 40 MG PO (08:15)
[2024-08-02] MEDS: FLOMAX 0.4 MG PO (08:15)
[2024-08-02] MEDS: NEURONTIN 400 MG PO ×3 (08:15→22:23)
[2024-08-02] MEDS: MUCINEX 600 MG PO ×2 (08:15→22:22)
[2024-08-02] MEDS: SENOKOT-S 1 TABLET PO ×2 (08:15→21:20)
[2024-08-02] MEDS: FARXIGA 10 MG PO (08:15)
[2024-08-02] MEDS: TOPROL XL 25 MG PO (08:15)
[2024-08-02] MEDS: VITAMIN C 500 MG PO (08:15)
[2024-08-02] MEDS: LIDOCAINE 4% PATCH TOPICAL (08:44)
--- NOTE | 2024-08-02 08:59 | PN.DE.MGMTRT ---
Insulin Management
- -
08/02/2024: Diabetes Management Consult Follow up
Patient admitted 07/29 for CABG x 2. He was evaluated by CT surgery in the OP setting and was deemed a candidate for revascularization. PMH: CAD w/extensive family h/o CAD and early mortality, ICM with decreased LVEF 35%, HTN, HLD, Migraines,
Neuropathy, GERD, RBBB, Moderate/severe mitral regurgitation, Nephrolithiasis, Hepatic asteatosis, Obesity, h/o vertigo, h/o Herpes zoster, Anxiety/panic attacks and T2DM. A1C 8.4%, Cr .8, eGFR >60. Pt was managed on glycemic protocol and
transitioned off 07/31 to SQ insulin.
Pt awake, alert, oriented, sitting up in chair, offers no complaints, able to discuss diabetes care. States he has had diabetes since 2016, primary doctor manages. States he was taking Glimepiride 4mg daily, Farxiga 10mg daily, Metformin 1000mg XL
BID and Trulicity .75Q Mondays.
POD #4, doing well.
08/01 Glucose range 172 to 260. Lantus 15 units started 08/01. Fasting glucose 08/02 179. Will increase hs lantus to 18 units, continue Metformin 1000mg BID, Glimepiride 4mg daily and Farxiga 10mg daily, With low corrective insulin. Pre lunch
glucose 177, to start AC novolog 3 units.
Will cont to follow and make further adjustments of necessary.
Pt states he has a working meter at home with enough supplies.
Diabetes History
- -
Type of Diabetes: 2
Pre-Admission Diabetes Regimen
08/02/24
05:08
Creatinine 1.0
Lab Results
Hemoglobin A1c 8.4 % (4.0-5.6) H 07/14/24 08:59
Insulin Pump Settings
IP Diabetes Regimen
08/01/24 08/01/24 08/01/24
13:34 18:11 22:52
Glucose
POC Glucose 233 H 201 H 172 H
08/02/24 08/02/24
05:08 07:53
Glucose 165 H
POC Glucose 179 H
Meal type: Breakfast
Patient Education
[2024-08-02] MEDS: COZAAR 50 MG PO (10:52)
[2024-08-02] MEDS: ALDACTONE 25 MG PO (10:52)
--- NOTE | 2024-08-02 11:17 | W.DCSUMMARY ---
Discharge Summary
Discharge Data
Date of Admission: 07/29/24
Date of Discharge: 08/03/24
-
Pending Results: No
Hospital Course
Primary care physician: Noel Armenta
Outpatient health unit clerk: Pawan Cabrera
Inpatient consultants: [facility] Cardiology, pulmonary status, diabetes nurse practitioner
Procedures:
1. CABG
Primary Diagnosis:
1. Coronary artery disease
Secondary Diagnoses:
1. Chronic HFrEF (35-40%)
2. Hypertension
3. Type 2 diabetes (A1c 8.4)
4. Class 1 obesity (BMI 33)
5. Hepatic steatosis
6. Migraine with aura
7. Anxiety with panic attack
8. post-op constipation
HPI: 54-year-old male was electively admitted on 07/29/2024 for CABG due to two-vessel coronary disease
Hospital course: Patient underwent CABG x 2 with JONES to LAD, and saphenous vein graft to PDA by Dr. Tanner Zhang. Preprocedure TTE on 05/27/2025 reported an EF of 35-40%. Patient received no intraoperative blood products and returned to CVICU on
Levophed, Precedex, dobutamine, and insulin. Patient extubated at 1700 date of surgery. Dobutamine was maintained through postoperative day 1 due to history of low EF and weaned off on postoperative day #2. Two mediastinal and two pleural chest
tubes were removed on postoperative day 2. Patient diuresed daily with IV Lasix 40 mg. Patient was evaluated by diabetic nurse practitioner team and Lantus 18 units at bedtime and Novolog 3u TID added for improved blood sugar control. On
postoperative day #4, GDMT with losartan and spironolactone was resumed. Patient constipated and had panic attack requiring Ativan dose. Recently lost job and worried about future income. Postoperative day #5, magnesium citrate was ordered with
result of positive BM. Creatinine bumped to 1.4 and losartan/Aldactone were discontinued. Repeat BMP with creatinine down to 1.1. Patient ambulating independently in hallways and deemed stable for discharge to home.
Home medication changes:
Stop:
Advil
Cozaar
Aldactone
New:
Lantus 18u H
Novolog 3u TID
Discharge Plan
-
Patient Disposition: Home (Routine Discharge)
Discharge Diagnosis/Procedures: CABG x 2 (07/29/24)
Condition: Fair
Diet: Low Cholesterol, Low Sodium and Diabetic, Carb Controlled
Activity: No strenuous activity
Driving Restrictions: Not until seen by your Dr
Bathing Restrictions: OK to Shower
Other Services: Cardiac Rehab
Specialty Instructions: Weigh Daily- Call MD for wt gain/loss 3 lbs overnight/5 lbs in 1 week
Activity Restrictions/Additional Instructions:
ACTIVITY:
-No strenuous activity: no heavy lifting, pushing, pulling anything over 15 pounds for one month
-continue to use stairs as tolerated
DRIVING RESTRICTIONS:
-No driving for one month or until approved by your surgeon
WOUND CARE:
-Shower daily. Use soap & water.
-No lotions, creams or powders on incision area.
DIET:
-continue a low fat/low cholesterol diet.
-IF you are diabetic, continue carb controlled diet.
CARDIAC REHAB:
-Please make appointment to start in 5-6 weeks with your local hospital program. (See Cardiac Rehabilitation Discharge Booklet).
SPECIALTY INSTRUCTIONS:
-Weigh yourself daily. Call your physician for any weight gain/loss of 3 lbs overnight or 5 lbs in one week.
-REPORT any clicking noise or uneven appearance of your sternum to your surgeon immediately.
-If you smoke, you are instructed to quit. The [place] smoking hotline phone number is [phone]
Referrals:
CT Transitional Care Nurse [Outside] (The Cardiothoracic Transitional Care Nurse will call you to set up a visit in 1-2 days.)
[facility] [Outside] - 09/05/24 9:30 am
(Cardiac Rehab Orientation appointment and� First Exercise appointment is on 09/05/24 at 9:30 AM
The Cardiac Rehab gym is located on the first floor of the [facility].)
Noel Armenta MD [Family Provider] -
Jazmin Raymond CRNP [Specified Professional Personl] - 09/16/24 1:40 pm
Tanner Zhang MD [Active] - 08/30/24 1:30 pm
Prescriptions:
New
clopidogrel 75 mg Tablet
75 mg PO DAILY Qty: 30 1RF
insulin glargine [Lantus Solostar U-100 Insulin] 100 unit/mL (3 mL) insulin pen
18 unit SC QPM Qty: 15 2RF
insulin aspart U-100 [Novolog FlexPen U-100 Insulin] 100 unit/mL (3 mL) Insulin Pen
3 unit SC AC Qty: 5 0RF
(DME) pen needle, diabetic [BD Ultra-Fine Lianne Pen Needle] 32 gauge x 5/32' Needle
Qty: 200 0RF
Rx Instructions:
As Directed
oxycodone 5 mg Tablet
5 mg PO Q4HPRN PRN (Reason: severe pain) Qty: 10 0RF
metoprolol succinate 25 mg Tablet Extended Release 24 Hr
25 mg PO DAILY Qty: 30 1RF
Continued
pantoprazole 20 mg Tablet,Delayed Release (Dr/Ec)
20 mg PO HS
dapagliflozin propanediol [Farxiga] 10 mg tablet
10 mg PO DAILY
gabapentin 600 mg Tablet
600 mg PO HS
gabapentin 400 mg Capsule
400 mg PO TID
glimepiride 2 mg tablet
4 mg PO DAILY
ezetimibe 10 mg Tablet
10 mg PO DAILY
Trulicity 0.75 mg/0.5 mL Pen Injector
0.75 mg SC MO
Men's Multivitamin 200-60-600 mcg Tablet
1 tab PO DAILY
bismuth subsalicylate [Pepto-Bismol] 262 mg Tablet,Chewable
2 tab PO DAILYPRN PRN (Reason: indigestion )
acetaminophen 325 mg Capsule
650 mg PO Q4H PRN (Reason: pain)
lorazepam 1 MG tablet
0.5 mg PO DAILYPRN PRN (Reason: anxiety)
nitroglycerin 0.4 mg tablet, sublingual
0.4 mg sublingual [id number] PRN (Reason: chest pain) Qty: 25 2RF
epinephrine [Auvi-Q] 0.3 mg/0.3 mL Auto-Injector
0.3 mg IM ONCE
Repatha SureClick 140 mg/mL Pen Injector
140 mg SC Q2W
diphenhydramine HCl [Benadryl] 25 mg Capsule
25 mg PO HS PRN (Reason: Allergies)
aspirin 81 MG tablet,chewable
81 mg PO DAILY
metformin 500 MG tablet extended release 24 hr
1,000 mg PO BID
Discontinued
losartan 50 mg tablet
50 mg PO DAILY
ibuprofen [Advil] 200 mg Tablet
400 mg PO Q6HPRN PRN (Reason: pain)
metoprolol succinate 100 mg tablet extended release 24 hr
100 mg PO DAILY
spironolactone 25 mg tablet
25 mg PO DAILY
Discharge Orders:
Discharge Patient (As Directed); Ordered 08/03/24
Ordered By: Cally Ocampo
Care Plan Goals
Care Plan Goals:
Problem: Readiness for enhanced knowledge related to diagnosis and treatment plan
Goal: Understand your diagnosis and treatment plan needs, including medications if applicable.
Instructions: Know your diagnosis, underlying causes and treatment plan options, including medications if applicable. Consult with your health care team to learn about your diagnosis and treatment plan, including medications if applicable.
Discharge Date and Time
Print Language: SERBIAN
--- NOTE | 2024-08-02 13:04 | PTCARENOTE ---
Patient received from Leslee RN: AAOx3, responds spontaneously to RN and follows commands; VSS; SR with BBB on monitor; +1 B/L LE edema; +2 DP and radial pulses; Lungs diminished at bases; SpO2 96-100% on RA; IS 1000 ml; Patient complains of
constipation; Patient urinating in bathroom and urinal; Surgical sites intact; PIVx1 #18 RAC; See nursing documentation for further information
[2024-08-02] MEDS: NSS IV (13:17)
[2024-08-02 13:50] LABS: Glucose - Point of Care 177 mg/dl (70-99)
[2024-08-02] MEDS: MILK OF MAGNESIA 30 ML PO (13:50)
[2024-08-02] MEDS: NOVOLOG FLEXPEN 3 UNITS SC ×2 (14:08→18:21)
[2024-08-02 15:42] LABS: Glucose - Point of Care 199 mg/dl (70-99)
--- NOTE | 2024-08-02 16:25 | PTCARENOTE ---
Patient complaining of seeing aura in room - states he sees 'little white dots everywhere.' VSS; BS 199; CVNP Cally Herrera notified and aware; Patient states he 'sees aura when feeling anxious' in the previous episodes at home; Patient showered using
CHG and now states he feels better; Patient resting comfortably in chair
--- NOTE | 2024-08-02 17:14 | W.PN.CD ---
Today's Communication / Plan
-
doing well, stable for discharge
Impression / Plan
-
54 y/o male with RBBB, DM2, hypertension, and dyslipidemia recently saw Dr. Cabrera for chest discomfort. Echo showed ICM with 35-40%. Cath showed multivessel CAD. He is now s/p CABG x 2.
CAD s/p CABG x 2 (DIRK to LAD, GSV to RPDA), Dr. Zhang 07/29/24:
-Improved and off all oxygen
-Weaned off pressors
-chest tubes, SGC and A line out
-Central line out
-post-op EKG and tele SR/ST with RBBB
-ASA, statin, BB
Mitral regurgitation:
-mild on pre-op echo
-moderate to severe per op report, no intervention
-will need to be monitored over time
ICM:
-EF 35%
-on Farxiga, losartan, spironolactone, and metoprolol, all now resumed
-monitor volume, appears euvolemic
Dyslipidemia:
-statin, ezetimibe
HTN:
-monitor post-op, stable
RBBB:
-chronic
Obesity:
-will benefit from weight loss long-term
Physical Exam
Vital Signs/Labs
Vital Signs
Temp Pulse Resp BP Pulse Ox
36.5 C 83 16 105/62 97
08/02/24 15:42 08/02/24 15:39 08/02/24 15:42 08/02/24 15:39 08/02/24 15:42
08/01/24 08/02/24 08/03/24
06:59 06:59 06:59
Actual Weight 110.1 kg 109.2 kg
08/02/24 05:08
08/02/24 05:08
PT 17.6 Sec (11.4-14.6) H 07/29/24 15:00
INR 1.42 07/29/24 15:00
APTT 26.6 Sec (23.4-35.0) 07/29/24 15:00
Magnesium 2.4 mg/dl (1.6-2.3) H 08/02/24 05:08
Physical Exam
Constitutional: No acute distress
Cardiovascular: Rhythm & rate is regular
Respiratory: Respiratory effort normal
Neuro/Psych: AO x 3
Data Reviewed
-
Date of Service: August 02, 2024
Medical Decision Making: Reviewed Test Results
EKG: Tracing Personally Visualized and interpreted
Echo: Tracing Personally Visualized and interpreted
Labs: Labs Reviewed by me
[2024-08-02] MEDS: ATIVAN 0.5 MG PO ×2 (17:17→22:44)
--- NOTE | 2024-08-02 18:14 | PTCARENOTE ---
I met with Tye to review insulin administration. He stated he was previously instructed by the RN on how to give insulin via the insulin pen. He has done his own injections with the RN supervision. I reviewed the set up of the insulin pen and
reinforced storage and rotating sites. Insulin onset/action /duration were reviewed for both long acting and rapid acting insulin. Hypoglycemia was reviewed and I encouraged Tye to carry glucose with him at all times along with wearing medical
identification. He verbalized understanding and will follow up with his primary care with any concerns of high or low blood glucose levels.
[2024-08-02 18:21] LABS: Glucose - Point of Care 197 mg/dl (70-99)
[2024-08-02] MEDS: NEURONTIN 600 MG PO (22:22)
[2024-08-02 22:31] LABS: Glucose - Point of Care 157 mg/dl (70-99)
[2024-08-02] MEDS: LANTUS 0.18 UNITS SC (22:49)
--- NOTE | 2024-08-02 23:15 | PTCARENOTE ---
Report received from RAMESH Davenport. Pt assessed., VS done. See flowsheet. Pt awake, alert, oriented x 4. Speech clear. Equal extremity strength x 4. BBS present. Sats 95% room air. CDB, IS encouraged. IS peak 2500 mls. Pt in SR with RBBB. Normotensive.
Audible heart tones. For pulse and wound assessments, see flowsheets. Belly large, round, obese. Normoactive bs x 4. No BM yet. Miralax given at 2315. Pt states he onle had 3 sips of Miralax this am. Refuses suppository for now. Passing flatus,
nontender abdomen. Has yet to void. Has voided on day shift today without difficulty. Walked entire loop of CVICU and IVU. Ativan 0.5 mg po given HS. LIZETTE Barton at bedside at 2100 and aware of assessment data, VS.
[2024-08-03 01:04] VITALS: BP 95/61
--- NOTE | 2024-08-03 01:05 | PTCARENOTE ---
VS done. Pt attempting to go back to sleep.
[2024-08-03 03:49] VITALS: BP 114/68
[2024-08-03 03:55] VITALS: BMI 34.3
--- NOTE | 2024-08-03 04:36 | PTCARENOTE ---
Pt up to BR. Voided clear, yellow urine. Passed flatus, no BM. No abdominal pain. Pt weighed on standing scale. Helped back to bed. Labs drawn and sent. VS done. Scant bloody drainage to top of sternal incision. CHG and sterile gauze applied to top
of incision.
[2024-08-03 05:01] LABS: Blood Urea Nitrogen 48 mg/dl (9-20); Calcium 9.2 mg/dl (8.4-10.2); Carbon Dioxide 29 mmol/L (22-30); Chloride 99 mmol/L (98-107); Estimated Creatinine Clearance 77 ml/min; Glucose 134 mg/dl (70-99); Potassium 4.8 mmol/L (3.5-5.1); Sodium 136 mmol/L (135-145); eGFR > 60.00
--- NOTE | 2024-08-03 05:32 | W.PN.CT ---
Today's Communication / Plan
-
-pod #5
-doing well overall, ambulated in hallways, did stairs
-pt states having a panic attack yesterday - improved with Ativan. Has hx of it in the past and usually with migraine and aura, which improve with Ativan.
-diuresed with 40 iv Lasix on 08/02
-Cr trended up - 1.4 today (1.0 on 08/02 and 1.2 preop) - consider holding off further Lasix
-got MOM and Miralax yesterday
-current meds (ASA, Plavix, Zetia, Toprol 25 qd, Amio, Cozaar, Aldactone, Farxiga, Flomax, Mucinex, Neurontin, Feosol/Vit C, Amaryl, Glucophage, Lantus)
-encourage IS, ambulate
-possible d/c
Assessment / Plan
-
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
- The intraoperative preoperative SAFIA demonstrated zmoogvbq-oc-guwjtm MR (3+) secondary to IIIB dysfunction w/ tethering of both anterior and posterior leaflets w/ subtle prolapse of anterior leaflet. There was pulmonary vein blunting w/o flow
reversal. The LVEF was globally decreased at 35% w/ most severely affected inferior wall. The AV was normal. The RV was normal. MR discussed in multidisciplinary fashion w/ anesthesia & cardiology. MV intervention was not
undertaken.Postoperative ECHO w/ slightly improved heart function but generally grossly unchanged.
- HTN/HLD
- Class 1 obesity (BMI 33)
- Extensive FHx of premature CAD
- Poorly-controlled DM w/ HgbA1c 10.2 to 8.4
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
- Ischemic cardiomyopathy, LVEF 35%
- Mnfclukx-oo-dbwuil MR secondary to IIIB dysfunction
- Pre-existing RBBB
- GERD
- Hepatic steatosis
- Migraine with aura
- Hx panic attacks- takes Ativan prn
- Acute postop blood loss anemia - stable, no bleeding
- Acute postop atelectasis
- Acute postop hypovolemia with subsequent hypervolemia
- Suspected acute pericarditis/ +rub
- MERCEDES
Discussed patient care with: Nursing and Care Team
Subjective
Procedure
- s/p CABG x 2 (DIRK to LAD, GSV to RPDA) by Dr Zhang on 07/29/24
-
Date of Service: August 03, 2024
Objective Data
-
Lab Results
08/02/24 05:08
PT 17.6 Sec (11.4-14.6) H 07/29/24 15:00
INR 1.42 07/29/24 15:00
APTT 26.6 Sec (23.4-35.0) 07/29/24 15:00
Vital Signs
Vital Signs
Temp Pulse Resp BP Pulse Ox
97.9 F 72 15 95/61 95
08/03/24 01:04 08/03/24 02:00 08/03/24 01:04 08/03/24 01:04 08/03/24 02:37
CT Intake/Output/Weight
08/02/24 08/02/24 08/03/24
06:59 18:59 06:59
Intake Total 600 / 600
Output Total 300 / 700
Balance -300 / -590 600 / 600
SaO2: 95
[2024-08-03] MEDS: TYLENOL 1000 MG PO ×2 (07:26→13:22)
--- NOTE | 2024-08-03 08:06 | PTCARENOTE ---
Received pt from manufacturing shift supervisor RN; pt AAOx3 and resting comfortably in chair; NSR with RBBB on monitor and VSS: PIV x1 patent; lungs diminished; IS to 2400; positive bowel sounds; pt voiding clear yellow urine; palpable pulses throughout; +1
generalized edema; all surgical sites C/D/I; see nursing documentation for further details.
[2024-08-03 08:11] VITALS: BP 104/71
[2024-08-03 08:13] LABS: Glucose - Point of Care 135 mg/dl (70-99)
[2024-08-03] MEDS: CITROMA 300 ML PO (08:16)
[2024-08-03] MEDS: PLAVIX 75 MG PO (08:16)
[2024-08-03] MEDS: FARXIGA 10 MG PO (08:16)
[2024-08-03] MEDS: PROTONIX 40 MG PO (08:17)
[2024-08-03] MEDS: MAGNESIUM OXIDE 500 MG PO (08:17)
[2024-08-03] MEDS: FEOSOL 325 MG PO (08:17)
[2024-08-03] MEDS: TOPROL XL 25 MG PO (08:17)
[2024-08-03] MEDS: ZETIA 10 MG PO (08:17)
[2024-08-03] MEDS: GLUCOPHAGE 1000 MG PO (08:17)
[2024-08-03] MEDS: NEURONTIN 400 MG PO ×2 (08:17→15:37)
[2024-08-03] MEDS: MUCINEX 600 MG PO (08:17)
[2024-08-03] MEDS: VITAMIN C 500 MG PO (08:17)
[2024-08-03] MEDS: LOW STRENGTH ASPIRIN 81 MG PO (08:17)
[2024-08-03] MEDS: AMARYL 4 MG PO (08:17)
[2024-08-03] MEDS: PACERONE 200 MG PO (08:18)
[2024-08-03] MEDS: LIDOCAINE 4% PATCH TOPICAL (08:19)
[2024-08-03 08:21] VITALS: BP 95/60
[2024-08-03] MEDS: NOVOLOG FLEXPEN-LOW RESISTANCE SC ×2 (08:21→13:19)
--- NOTE | 2024-08-03 08:24 | PN.DE.MGMTRT ---
Insulin Management
- -
08/03/2024: Diabetes Management Consult Follow up
Patient admitted 07/29 for CABG x 2. He was evaluated by CT surgery in the OP setting and was deemed a candidate for revascularization. PMH: CAD w/extensive family h/o CAD and early mortality, ICM with decreased LVEF 35%, HTN, HLD, Migraines,
Neuropathy, GERD, RBBB, Moderate/severe mitral regurgitation, Nephrolithiasis, Hepatic asteatosis, Obesity, h/o vertigo, h/o Herpes zoster, Anxiety/panic attacks and T2DM. A1C 8.4%, Cr .8, eGFR >60. Pt was managed on glycemic protocol and
transitioned off 07/31 to SQ insulin.
Pt awake, alert, oriented, sitting up in chair, offers no complaints, able to discuss diabetes care. States he has had diabetes since 2016, primary doctor manages. States he was taking Glimepiride 4mg daily, Farxiga 10mg daily, Metformin 1000mg XL
BID and Trulicity .75Q Mondays.
POD #5, doing well.
08/02 Glucose range 165 to 197. Lantus 15 units started 08/01. Fasting glucose 08/02 179. HS lantus increased to 18 units AC novolog 3 units started with lunch.
08/03 Glucose improved 134 fasting. Will continue HS lantus 18 units, novolog 3 units AC, with Metformin 1000mg BID, Glimepiride 4mg daily and Farxiga 10mg daily, with low corrective insulin.
Patient has demonstrated self injection with nursing supervision without difficulty.
Will cont to follow and make further adjustments of necessary.
Pt states he has a working meter at home with enough supplies.
Diabetes History
- -
Type of Diabetes: 2 requiring insulin
Pre-Admission Diabetes Regimen
08/03/24
04:20
Creatinine 1.4 H
Lab Results
Hemoglobin A1c 8.4 % (4.0-5.6) H 07/14/24 08:59
Insulin Pump Settings
IP Diabetes Regimen
08/02/24 08/02/24 08/02/24
13:48 15:41 18:20
Glucose
POC Glucose 177 H 199 H 197 H
08/02/24 08/03/24 08/03/24
22:29 04:20 08:10
Glucose 134 H
POC Glucose 157 H 135 H
Meal type: Dinner
Meal type: Lunch
Amount consumed: 100%
Amount consumed: 90%
Patient Education
[2024-08-03] MEDS: NOVOLOG FLEXPEN 3 UNITS SC ×2 (08:32→13:19)
[2024-08-03] MEDS: FLOMAX PO (08:40)
[2024-08-03] MEDS: ALDACTONE PO (09:05)
[2024-08-03] MEDS: COZAAR PO (09:05)
[2024-08-03] MEDS: SENOKOT-S PO (10:02)
[2024-08-03] MEDS: MIRALAX PO (10:02)
--- NOTE | 2024-08-03 10:02 | CM ---
CM following for DC planning needs.
Reviewed chart. Patient is POD#[address] Surg[address]
Reviewed again initial assessment. Pt. resides in a split level home w/ EMMANUELLE and nephew. He is functionally indep. at baseline w/ ADLs, mobility without the use of any assisted device.
Reviewed progress w/ Cardiac Rehab; patient doing well- indep. w/ ambulation and stairs.
Plan is for home w/ [facility] Transitional [facility] RN.
Will remain avail.
[2024-08-03 11:13] VITALS: BP 116/70
--- NOTE | 2024-08-03 11:46 | PTCARENOTE ---
Assessment unchanged; NSR RBBB on monitor and VSS; pt ambulating hallways.
[2024-08-03 12:41] LABS: Glucose - Point of Care 138 mg/dl (70-99)
[2024-08-03 14:10] LABS: Blood Urea Nitrogen 43 mg/dl (9-20); Calcium 9.7 mg/dl (8.4-10.2); Carbon Dioxide 27 mmol/L (22-30); Chloride 99 mmol/L (98-107); Estimated Creatinine Clearance 98 ml/min; Glucose 109 mg/dl (70-99); Potassium 4.7 mmol/L (3.5-5.1); Sodium 136 mmol/L (135-145); eGFR > 60.00
[2024-08-03 15:17] VITALS: BP 112/71
--- NOTE | 2024-08-03 16:37 | PTCARENOTE ---
stunner and IV removed; pt dressed self into clothes; discharge instructions gone over with patient and all questions answered; pt wheelchair to car with staff for discharge with family.
== END 2024-08-03 16:46 | disposition home or self-care (01) | DRG 236 ==
LOC: CVICU 05:15
PROVIDERS: Clinical Nurse Specialist Acute Care; Nurse Practitioner; Physician Assistant Medical; ADMITTING PHYSICIAN Thoracic Surgery (Cardiothoracic Vascular Surgery); CONSULT PHYSICIAN Internal Medicine Critical Care Medicine; FAMILY PHYSICIAN Family Medicine
PROC: 5A1221Z Performance of Cardiac Output, Continuous (ICD-10-PCS; 2024-07-29)
PROC: 06BP4ZZ Excision of Right Saphenous Vein, Percutaneous Endoscopic Approach (ICD-10-PCS; 2024-07-29)
PROC: 021009W Bypass Coronary Artery, One Artery from Aorta with Autologous Venous Tissue, Open Approach (ICD-10-PCS; 2024-07-29)
PROC: 02100ZC Bypass Coronary Artery, One Artery from Thoracic Artery, Open Approach (ICD-10-PCS; 2024-07-29)
DX: I25.10 Atherosclerotic heart disease of native coronary artery without angina pectoris (principal); I50.22 Chronic systolic (congestive) heart failure; D62 Acute posthemorrhagic anemia; J98.11 Atelectasis; N17.9 Acute kidney failure, unspecified; I30.9 Acute pericarditis, unspecified; I34.0 Nonrheumatic mitral (valve) insufficiency; I11.0 Hypertensive heart disease with heart failure; E78.00 Pure hypercholesterolemia, unspecified; K21.9 Gastro-esophageal reflux disease without esophagitis; I45.10 Unspecified right bundle-branch block; K76.0 Fatty (change of) liver, not elsewhere classified; F41.0 Panic disorder [episodic paroxysmal anxiety]; E66.811 Obesity, class 1; G43.109 Migraine with aura, not intractable, without status migrainosus; K59.09 Other constipation; I25.82 Chronic total occlusion of coronary artery; E11.65 Type 2 diabetes mellitus with hyperglycemia; I25.5 Ischemic cardiomyopathy; E87.70 Fluid overload, unspecified; E86.1 Hypovolemia; I25.2 Old myocardial infarction; Z68.34 Body mass index [BMI] 34.0-34.9, adult; Z79.82 Long term (current) use of aspirin; Z79.84 Long term (current) use of oral hypoglycemic drugs; Z79.899 Other long term (current) drug therapy; Z82.49 Family history of ischemic heart disease and other diseases of the circulatory system
CPT/HCPCS: 36415; 71045; 71046; 80048; 80053; 81003; 81015; 82248; 82330; 82565; 82805; 82810; 82947; 82962; 83036; 83735; 84132; 84302; 84520; 85014; 85018; 85025; 85027; 85049; 85610; 85730; 86850; 86900; 86901; 86920; 87070; 87086; 93005; 93880; 94002; 94010; 94060

== ENCOUNTER 2024-09-12 11:00 | Outpatient (RCR) | payer BC, SELFPAY ==
[2024-09-05 10:54] LABS: Glucose - Point of Care 192 mg/dl (70-99)
[2024-09-07 09:16] LABS: Glucose - Point of Care 128 mg/dl (70-99)
[2024-09-07 10:06] LABS: Glucose - Point of Care 110 mg/dl (70-99)
[2024-09-09 09:21] LABS: Glucose - Point of Care 148 mg/dl (70-99)
[2024-09-09 10:22] LABS: Glucose - Point of Care 112 mg/dl (70-99)
[2024-09-12 09:37] LABS: Glucose - Point of Care 191 mg/dl (70-99)
[2024-09-12 10:33] LABS: Glucose - Point of Care 154 mg/dl (70-99)
== END 2024-09-12 23:59 | disposition home or self-care (01) ==
LOC: CRHB 11:00
PROVIDERS: ATTENDING PHYSICIAN Student in an Organized Health Care Education/Training Program
DX: Z95.1 Presence of aortocoronary bypass graft (principal)
CPT/HCPCS: 82962; 93797; 93798

== ENCOUNTER → 2024-09-12 17:27 | Outpatient (REF) | payer BC, SELFPAY | LOC: RAD 17:27 | PROVIDERS: ATTENDING PHYSICIAN Thoracic Surgery (Cardiothoracic Vascular Surgery); FAMILY PHYSICIAN Family Medicine | DX: Z95.1 Presence of aortocoronary bypass graft (principal); T81.89XD Other complications of procedures, not elsewhere classified, subsequent encounter | CPT/HCPCS: 71270; Q9967 ==

== ENCOUNTER → 2024-09-20 15:07 | Outpatient (REF) | payer BC, SELFPAY | LOC: CLAB 15:07 | PROVIDERS: ATTENDING PHYSICIAN Thoracic Surgery (Cardiothoracic Vascular Surgery) | DX: S21.101A Unspecified open wound of right front wall of thorax without penetration into thoracic cavity, initial encounter (principal); L08.9 Local infection of the skin and subcutaneous tissue, unspecified | CPT/HCPCS: 87075 ==

== ENCOUNTER 2024-10-19 10:34 | Outpatient (RCR) | payer BC, SELFPAY | END 2024-10-19 23:59 | disposition home or self-care (01) | LOC: CRHB 10:34 | PROVIDERS: ATTENDING PHYSICIAN Student in an Organized Health Care Education/Training Program; FAMILY PHYSICIAN Family Medicine | DX: Z95.1 Presence of aortocoronary bypass graft (principal) | CPT/HCPCS: 93797; 93798 ==

== ENCOUNTER 2024-11-02 11:04 | Outpatient (RCR) | payer BC, SELFPAY | END 2024-11-02 13:09 | disposition home or self-care (01) | LOC: CRHB 11:04 | PROVIDERS: ATTENDING PHYSICIAN Student in an Organized Health Care Education/Training Program; FAMILY PHYSICIAN Family Medicine | DX: Z95.1 Presence of aortocoronary bypass graft (principal) | CPT/HCPCS: 93797; 93798 ==

== ENCOUNTER → 2025-06-01 09:10 | Outpatient (REF) | payer BC, SELFPAY | LOC: HWRCS 09:10 | PROVIDERS: ATTENDING PHYSICIAN Student in an Organized Health Care Education/Training Program; FAMILY PHYSICIAN Family Medicine | DX: I25.5 Ischemic cardiomyopathy (principal) | CPT/HCPCS: 93306 ==